=== PATIENT | female | born 1935 | race African-American/Black ===

== ENCOUNTER 2017-09-09 13:08 | Inpatient (IN) | payer MEDICARE, MEDICAID ==
[2017-09-09] MEDS ORDERED: Nitroglycerin 2% Ointment 1 INCH/1 GM Packet ONE (15:08)
[2017-09-09] MEDS ORDERED: Acetaminophen 500 MG TAB ONE (15:10)
[2017-09-09 15:35] LABS: Troponin I 0.014 ng/mL (< 0.028)
--- NOTE | 2017-09-09 16:12 | HP ---
PRIMARY CARE PHYSICIAN: Bessie Soni M.D. PRIMARY DIRECTOR CORPORATE SECURITY: Dr. Mata. REASON FOR ADMISSION: Transfer from [facility] for atrial fibrillation with RVR and ches t pain. HISTORY OF PRESENT ILLNESS: An 82-year-old -[place] female who has history of atrial fibril lation as well as coronary artery disease who went to [facility] for evaluation of chest pain. Patient reports that last night before going to bed, she was experiencing chest pain which wa s substernal in location, lasted for few minutes and subsided after without doing anything. Patient was feeling heaviness in her chest. She did not have any palpitation, dizziness, or syncope. She did not have any shortness of breath associated with chest pain. She also denied any associated luann sea, vomiting, diaphoresis; somehow patient was able to go to sleep. She lives alone at home. This morning when patient woke up, she was experiencing similar chest pain. She denied any palpitat ions, shortness of breath. She denied any dizziness. Her chest pain was more intense and more prol onged then last night. Patient's family member went to see her today and as she was continued to co mplain of chest pain and that is why family member drove her to [facility] where she was evaluated and patient was found with atrial fibrillation with rapid ventricular response. In the emergency room, patient was given 1 dose of Cardizem bolus and subsequently Cardizem drip was started. Even after that, patient's rate was not under control and that is why the patient was sen t to the emergency room at our hospital. In our emergency room, ER physician tried to wean off Cardizem drip, but her heart rate was not cont rolled and that is why she remained on a Cardizem drip. At this point, patient's chest pain has sub sided. She denies any fever, chills, or UTI symptoms. She denies any constipation, diarrhea. She denies any melena or hematochezia. She denies any headache, dizziness or fall. ALLERGIES: No known drug allergy. CURRENT HOME MEDICATIONS: Metformin 500 mg p.o. b.i.d., Toprol-XL 100 mg p.o. daily, fish oil 1000 mg p.o. daily, iron one tablet p.o. daily, , Imdur 60 mg p.o. daily, edarbyclor 40/25 one tablet [place]mer [place], aspirin 81 mg p.o. daily, Amaryl 1 mg p.o. daily, Eliquis 2.5 mg p.o. daily. EMERGENCY ROOM COURSE: At [facility], patient was given Cardizem bolus and subsequently Cardizem drip was started. PAST MEDICAL HISTORY: Coronary artery disease required CABG, diabetes type 2, hypertension, and atr ial fibrillation. PAST SURGICAL HISTORY: CABG and cardioversion was performed in 2013. REVIEW OF SYSTEMS: The following complete review of systems was negative, unless otherwise mentione d in the HPI or below: Constitutional: Weight loss or gain, ability to conduct usual activities. Skin: Rash, itching. Eyes: Double vision, pain. ENT/Mouth: Nose bleeding, neck stiffness, pain, tenderness. Cardiovascular: Palpitations, dyspnea on exertion, orthopnea. Respiratory: Shortness of breath, wheezing, cough, hemoptysis, fever or night sweats. Gastrointestinal: Poor appetite, abdominal pain, heartburn, nausea, vomiting, constipation, or diar janessa. Genitourinary: Urgency, frequency, dysuria, nocturia. Musculoskeletal: Pain, swelling. Neurologic/Psychiatric: Anxiety, depression. Allergy/Immunologic: Skin rash, bleeding tendency. Please see my HPI for pertinent positive and negative. All other review of systems reviewed and neg ative except as mentioned in the HPI. SOCIAL HISTORY: Patient lives at home by herself. Patient's family member helping her out with [employer] activities. She does not have any tobacco, alcohol or illicit drug abuse history. FAMILY HISTORY: No strong family history of premature coronary artery disease, stroke or cancer. CODE STATUS: The patient is a Jehovah Witness, but she is FULL CODE. Patient's son and daughter-in -law is power of employment law attorney. PAST PSYCHIATRIC HISTORY: Reviewed and negative. SOCIAL HISTORY: The patient lives at home by herself. Family member helps her out. No history of tobacco, alcohol or illicit drug abuse. PHYSICAL EXAMINATION: VITAL SIGNS: On arrival, blood pressure 159/101, pulse 112, respiratory rate 18, temperature 98.9, saturation 96% on room air, weight 54.4 kilograms. GENERAL: Patient is currently alert, awake, in no obvious acute distress. HEAD: Normocephalic, atraumatic. EYES: Pupils round, reactive to light. Extraocular muscles intact. ENT: Oropharynx within normal limits. Moist mucous membranes. No oral lesions. No pharyngeal carmen thema, no exudate. NECK: Supple, no JVD, no thyromegaly, no carotid bruit. LUNGS: Clear to auscultation without any rhonchi or rales. CARDIAC: S1 and S2 irregularly irregular. No murmur, no gallop, no rub. ABDOMEN: Soft, bowel sounds present, nontender, nondistended. No organomegaly, no mass, no suprapu bic tenderness. BACK: Examination unremarkable, no CVA tenderness. EXTREMITIES: Upper extremity passive movements of all joints are normal. Lower extremities: No ed maren. Good peripheral pulsation. SKIN: No skin rash. HEMATOLOGICAL SYSTEM: No lymphadenopathy. PSYCHIATRIC: Normal affect. SIGNIFICANT LABORATORY DATA AND IMAGIN. CBC: WBC 6.3, hemoglobin 11.6, platelet 223. 2. BMP: Sodium 137, potassium 4.5, chloride 102, carbon dioxide 22, BUN 14, creatinine 1.10, gluco se 111, calcium 9.2. 3. LFT: AST 23, ALT 17, alkaline phosphatase 63, albumin 3.8, CK 63, CK-MB 1.4, troponin I less th an 0.010, BNP 320.4, lipase 25. 4. EKG showing atrial fibrillation with rapid ventricular response. ASSESSMENT AND PLAN/IMPRESSION: 1. Atrial fibrillation with rapid ventricular response. Patient's rate is not under control even w ith Cardizem bolus and Cardizem drip in the emergency room. Patient continued to require Cardizem d rip. At this point, we will keep this patient on telemetry floor. We will continue Cardizem drip a nd we will consult Cardiology for further evaluation and we will continue Eliquis 2.5 mg p.o. daily and aspirin 81 mg p.o. daily. We will also continue metoprolol XL 100 mg p.o. daily. Further decis ions will defer to Cardiology. We will also obtain echocardiography and we will monitor on telemetr y floor adjust and titrate Cardizem drip if needed. 2. Chest pain, most likely related with her fibrillation with RVR, underlying cardiac etiology need s to be excluded. We will do serial cardiac enzymes x3. We will check lipid profile tomorrow. We will also check TSH. Cardiology already consulted. We will continue with Cardizem drip at this poi nt, we will provide nitroglycerin on p.r.n. basis. We will check lipid profile for risk stratificat ion. 3. Coronary artery disease with a history of coronary artery bypass graft. Currently, patient is a dmitted for chest pain, we are going to observe on telemetry floor. We will continue Toprol-XL 100 mg p.o. daily, Imdur 60 mg p.o. daily, aspirin 81 mg p.o. daily along with cardiac monitoring. 4. Diabetes type 2. We will continue metformin 500 mg twice daily and glimepiride 1 mg p.o. daily. Diabetic diet will be given and insulin as per sliding scale protocol. 5. Hypertension. We will continue edarbyclor as per home dosage daily basis along with Imdur and T oprol XL. We will more titrate blood pressure medication as needed basis. 6. Elevated BNP. We are obtaining an echocardiography to assess ejection fraction and other struct ural abnormality. 7. Anemia, normocytic, normochromic. We will continue ferrous sulfate 325 mg p.o. b.i.d. The zenobia ent is Hindu and patient will not accept blood transfusion. 8. Deep venous thrombosis prophylaxis. Patient is already on Eliquis therapy. 9. Gastrointestinal prophylaxis, Protonix 40 mg p.o. daily. CODE STATUS: The patient is FULL CODE. Patient's son and [id number] is medical power of attor stormy. Patient is Hindu. Disposition plan based on clinical course. Plan of care discussed with the patient and family carlos ferrer at bedside in the emergency room.
[2017-09-09] MEDS ORDERED: Ondansetron ODT 4 MG TAB SL PRN (16:22)
[2017-09-09] MEDS ORDERED: Ondansetron HCl/PF 4 MG/2 ML Vial IVP PRN ×2 (16:22→16:24)
[2017-09-09] MEDS ORDERED: Acetaminophen 325 MG TAB PO PRN ×2 (16:22→16:24)
[2017-09-09] MEDS ORDERED: HYDROcodone/Acetaminophen 5/325 mg Tablet PO PRN (16:24)
[2017-09-09] MEDS ORDERED: Dextrose 50% Abboject 50 ML SYRINGE SLOW IVP PRN (16:24)
[2017-09-09] MEDS ORDERED: Nitroglycerin 0.4 MG TAB (25 Tab Bottle) SL PRN (16:24)
[2017-09-09] MEDS ORDERED: Artificial Tears 18 DROP/0.9 ML EA EYE PRN (16:24)
[2017-09-09] MEDS ORDERED: Loperamide HCl 2 MG CAP PO PRN (16:24)
[2017-09-09] MEDS ORDERED: Mag-Al 1200 mg/1200 mg/30 ML UDCUP PO PRN (16:24)
[2017-09-09] MEDS ORDERED: Eucerin (Mineral Oil/Petrolatum,White) 30 gm Jar TOP PRN (16:24)
[2017-09-09] MEDS ORDERED: hydrALAZINE 20 MG/ML VIAL SLOW IVP PRN (16:24)
[2017-09-09] MEDS ORDERED: Senokot 8.6 MG TAB PO PRN (16:24)
[2017-09-09] MEDS ORDERED: Sodium Chloride 0.65% Nasal 44 ML BOT EA NARE PRN (16:24)
[2017-09-09] MEDS ORDERED: Chloraseptic Spray 180 ml Bottle PO PRN (16:24)
[2017-09-09] MEDS ORDERED: Diltiazem 125 MG in Sodium Chloride 0.9% 100 ML IVPB SCH (16:24)
[2017-09-09] MEDS ORDERED: Diabetic Tussin 200 MG/10 ML UDCUP PO PRN (16:24)
[2017-09-09] MEDS ORDERED: Milk Of Magnesia 30 ML UDCUP PO PRN (16:24)
[2017-09-09] MEDS ORDERED: Zolpidem Tartrate 5 MG TAB PO PRN (16:24)
[2017-09-09] MEDS ORDERED: HumaLOG 300 UNITS/3 ML VIAL SC PRN ×2 (16:24)
[2017-09-09] MEDS ORDERED: Ondansetron ODT 4 MG TAB PO PRN (16:24)
[2017-09-09] MEDS ORDERED: Dextrose 5% in Water 1,000 ML IV PRN (16:24)
[2017-09-09] MEDS ORDERED: Loratadine 10 MG TAB PO PRN (16:24)
[2017-09-09] MEDS: Ferrous Sulfate 325 MG TAB PO SCH (17:37)
[2017-09-09] MEDS: metFORMIN 500 MG TAB PO SCH (17:37)
[2017-09-09 18:39] LABS: Troponin I 0.011 ng/mL (< 0.028)
[2017-09-09 20:15] VITALS: BMI 19.5
[2017-09-09] MEDS: Apixaban 5 MG TAB PO SCH (20:25)
[2017-09-09] MEDS ORDERED: FLU VACC TS2017-18 (>65YR) 0.5 ML SYRINGE IM ONE (20:45)
[2017-09-09 22:14] LABS: Hematocrit 33.7 % (36.0-47.0)
[2017-09-09 23:19] LABS: Bilirubin Negative (Negative); Blood, Urine Negative (Negative); Glucose, Urine (Dipstick) Negative (Negative); Ketone, Urine Negative (Negative); Nitrite Negative (Negative); Protein, Urine (Dipstick) Negative (Neg-Trace)
[2017-09-09 23:21] LABS: Bacteria/HPF None Seen HPF (None Seen); Hyaline Casts/LPF 0-3 HYALINE CAST LPF (0-3 Hyaline); RBC/HPF 0-3 HPF (0-3); Squamous Epithelial 0-3 HPF (0-3); WBC/HPF 0-3 HPF (0-3)
--- NOTE | 2017-09-10 00:48 | CON ---
DATE OF CONSULTATION: 09/09/2017 HISTORY OF PRESENT ILLNESS: Catrachita Gutierrez is a pleasant 82-year-old black female who has history of chronic atrial fibrillation. She has undergone electrical cardioversions in the past, but has reverted back to atrial fibrillation. She was last seen in the office on 08/19/2017, digoxin 0.125 q.a.m. was discontinued. Metoprolol was increased from metoprolol ER 200 q.a.m.to Metoprolol ER 200 qam and one half of the 200 mg tablet q.p.m. She states she was doing very well; however, on 09/06/2017, ran out of metoprolol. She tried to get it refilled; however, has not had any doses since. On the evening of 09/08/2017, she had a chest pressure lasting a few minutes and then this resolved. Then, this morning when she woke up, she was again experiences similar type of chest pressure, but denied any palpitations or shortness of breath. This came more intense and she was taken by family member to [facility]. She was found to be in atrial fibrillation with fast ventricular response and was given Cardizem followed by a Cardizem drip and then transferred here. In the emergency room here, attempts were made to try to wean her off the Cardizem that her heart rate continued to be elevated. Her chest pressure has resolved. PAST MEDICAL HISTORY: Hypertension, diabetes, chronic atrial fibrillation, coronary artery disease. OPERATIONS: CABG and cardioversions in the past. MEDICATIONS: The medications when she was last seen in the office on 2016 were metoprolol 200 mg ER 1 q.a.m. and one half q.p.m., Eliquis 2.5 mg b.i.d., multivitamin daily, fish oil 1000 daily, Savaysa 30 q.d., metformin 500 mg b.i.d., aspirin 81 daily, Edarbyclor 40/25 q.a.m., pravastatin 40 at bedtime , isosorbide mononitrate 60 daily, glimepiride 1 mg daily. ALLERGIES: None. SOCIAL HISTORY: She does not smoke or drink. FAMILY HISTORY: Negative for coronary artery disease. REVIEW OF SYSTEMS: Twelve-point review systems otherwise unremarkable. PHYSICAL EXAMINATION: VITAL SIGNS: Blood pressure 154/70, pulse 86 and irregularly irregular. HEENT: PERRL. NECK: Supple. CHEST: Clear. CARDIAC: S1 and S2 are normal, without any S3, S4. There is a 2-3/6 holosystolic murmur at the apex. ABDOMEN: Normal bowel sounds, without tenderness or organomegaly. EXTREMITIES: Revealed no clubbing, cyanosis or edema. NEUROLOGIC: Grossly intact. LABORATORY DATA: EKG reveals atrial fibrillation with poor R-wave progression, nonspecific ST and T-wave changes. Hemoglobin 11.6, hematocrit 38.7, white count 6300. Sodium 137, potassium 4.5, chloride 102, carbon dioxide 22, BUN 14 , creatinine 1.10. Cardiac enzymes- negative troponin x3. BNP 324.4. IMPRESSION: 1. Chronic atrial fibrillation with rapid ventricular response at the present time due to abrupt beta filemon withdrawal since her last dose was on 2016. 2. Anticoagulation with Eliquis. 3. History of coronary artery bypass grafting. 4. Chest pressure, probably related to atrial fibrillation with fast ventricular response. 5. Moderate mitral regurgitation. 6. Diabetes. 7. Hyperlipidemia. PLAN: The patient restarted on her beta filemon -100 mg of metoprolol tonight and resumed in the 200 mg in the morning. Hopefully, tomorrow her Cardizem can be tapered and discontinued. MTDD
[2017-09-10 05:13] LABS: #Basophils 0.1 thou/uL (0.0-0.2); #Lymphocytes 1.6 thou/uL (1.20-3.40); #Monocytes 0.5 thou/uL (0.11-0.59); #Neutrophils 2.9 thou/uL (1.40-6.50); %Basophils 1.2 % (0.0-1.0); %Eosinophils 0.4 % (0.0-10.0); %Monocytes 9.4 % (0.0-10.0); Hematocrit 35.6 % (36.0-47.0); Mean Platelet Volume 8.5 fL (7.4-10.4); Red Blood Cell (RBC) Count 3.73 mill/uL (4.20-5.40); White Blood Cell (WBC) Count 5.1 thou/uL (4.8-10.8)
[2017-09-10 05:17] LABS: Prothrombin Time 29.5 SEC (12.0-14.7)
[2017-09-10 05:38] LABS: ALT (SGPT) 17 U/L (8-55); AST (SGOT) 20 U/L (5-34); Alkaline Phosphatase 56 U/L (40-150); Anion Gap 12 mmol/L (10-20); BUN (Urea Nitrogen) 15 mg/dL (9.8-20.1); Bilirubin, Total 0.9 mg/dL (0.2-1.2); Calc. Creatinine Clearance 32 mL/min (70-130); Calcium 9.1 mg/dL (7.8-10.44); Carbon Dioxide 26 mmol/L (23-31); Chloride 100 mmol/L (98-107); Cholesterol 111 mg/dl (< 200 Desired); Estimated GFR-MDRD 63; Globulin 3.7 g/dL (2.4-3.5); LDL Cholesterol, Calculated 55 mg/dL; Protein, Total 7.2 g/dL (6.0-8.3)
[2017-09-10] MEDS: Apixaban 5 MG TAB PO SCH ×2 (09:22→20:47)
[2017-09-10] MEDS: Fish Oil 1,000 MG CAP PO SCH (09:22)
[2017-09-10] MEDS: metFORMIN 500 MG TAB PO SCH ×2 (09:23→17:17)
[2017-09-10] MEDS: Ferrous Sulfate 325 MG TAB PO SCH ×2 (09:23→17:17)
[2017-09-10] MEDS: Glimepiride 1 MG TAB PO SCH (10:34)
--- NOTE | 2017-09-10 11:06 | PDOC.PN ---
- Subjective Encounter Start Date: 09/10/17 Encounter Start Time: 06:45 -: old records requested/rev pt is on cardizem drip, rate controlled, does not have chest pain, no fever - Objective Resuscitation Status: Resuscitation Status FULL:Full Resuscitation MAR Reviewed: Yes Vital Signs & Weight: Vital Signs (12 hours) Temp Pulse Resp BP Pulse Ox 09/10/17 07:21 98.0 F 77 18 96 09/10/17 07:00 98.0 F 77 18 130/73 96 09/10/17 04:00 98.1 F 68 20 118/67 97 09/09/17 23:33 98.3 F 70 18 119/64 98 Weight Weight 106 lb I&O: 09/09/17 09/10/17 09/11/17 06:59 06:59 06:59 Intake Total 633 Output Total 400 Balance 233 Result Diagrams: 09/10/17 04:14 09/10/17 04:14 Additional Labs: Accuchecks 09/10/17 09/09/17 09/09/17 05:58 20:48 16:13 POC Glucose 116 H 192 H 122 H EKG Reviewed by me: Yes (afib ) Phys Exam - Physical Examination Constitutional: NAD HEENT: PERRLA, moist MMs, sclera anicteric Neck: no JVD, supple Respiratory: no wheezing, no rales, no rhonchi Cardiovascular: no significant murmur, irregular Gastrointestinal: soft, non-tender, no distention, positive bowel sounds Musculoskeletal: no edema, pulses present Neurological: non-focal, normal sensation, moves all 4 limbs Lymphatic: no nodes Psychiatric: normal affect, A&O x 3 Skin: no rash, normal turgor Dx/Plan (1) Atrial fibrillation with RVR Code(s): I48.91 - UNSPECIFIED ATRIAL FIBRILLATION Status: Acute Comment: controlled (2) Chest pain Code(s): R07.9 - CHEST PAIN, UNSPECIFIED Status: Acute (3) CAD (coronary artery disease) Code(s): I25.10 - ATHSCL HEART DISEASE OF [place] CORONARY ARTERY W/O ANG PCTRS Status: Chronic (4) Chronic anticoagulation Code(s): Z79.01 - PHP [employer] DEVELOPER (CURRENT) USE OF ANTICOAGULANTS Status: Chronic (5) Diabetes type 2, controlled Code(s): E11.9 - TYPE 2 DIABETES MELLITUS WITHOUT COMPLICATIONS Status: Chronic (6) Dyslipidemia Code(s): E78.5 - HYPERLIPIDEMIA, UNSPECIFIED Status: Chronic (7) Hypertension Code(s): I10 - ESSENTIAL (PRIMARY) HYPERTENSION Status: Chronic (8) Anemia, normocytic normochromic Code(s): D64.9 - ANEMIA, UNSPECIFIED Status: Chronic - Plan cont current plan of care * cardiology recommendation noted * echo will be done * will taper off cardizem drip today * will monitor today * further recommendation will defer to cardiology * medication reviewed as below * symptomatic treatment. Review of Systems - Review of Systems Constitutional: negative: Fever, Chills, Sweats, Weakness, Malaise, Other ENT: negative: Ear Pain, Ear Discharge, Nose Pain, Nose Discharge, Nose Congestion, Mouth Pain, Mouth Swelling, Throat Pain, Throat Swelling, Other Respiratory: negative: Cough, Dry, Shortness of Breath, Hemoptysis, SOB with Excertion, Pleuritic Pain, Sputum, Wheezing Cardiovascular: negative: Chest Pain, Palpitations, Orthopnea, Paroxysmal Noc. Dyspnea, Edema, Light Headedness, Other Gastrointestinal: negative: Nausea, Vomiting, Abdominal Pain, Diarrhea, Constipation, Melena, Hematochezia, Other Genitourinary: negative: Dysuria, Frequency, Incontinence, Hematuria, Retention , Other Musculoskeletal: negative: Neck Pain, Shoulder Pain, Arm Pain, Back Pain, Hand Pain, Leg Pain, Foot Pain, Other Skin: negative: Rash, Lesions, Cristopher, Bruising, Other - Medications/Allergies Allergies/Adverse Reactions: Allergies Allergy/AdvReac Type Severity Reaction Status Date / Time No Known Allergies Allergy Unverified 09/06/15 10:27 Medications: Current Medications Acetaminophen (Tylenol) 650 mg PO Q4H PRN PRN Reason: Headache/Fever or Pain Hydrocodone Bitart/Acetaminophen ([place] 5/325) 1 tab PO Q4H PRN PRN Reason: Moderate Pain (4-6) Al Hydroxide/Mg Hydroxide (Maalox) 30 ml PO Q6H PRN PRN Reason: Heartburn or Indigestion Last Admin: 09/09/17 18:18 Dose: 30 ml Apixaban (Eliquis) 2.5 mg PO BID JAEL Last Admin: 09/10/17 09:22 Dose: 2.5 mg Artificial Tears (Tears Naturale) 0 drop EA EYE PRN PRN PRN Reason: Dry Eyes Aspirin (Aspirin Chewable) 81 mg PO DAILY [facility] Last Admin: 09/10/17 09:23 Dose: 81 mg Dextrose/Water (Dextrose 50%) 25 gm SLOW IVP PRN PRN PRN Reason: Hypoglycemia Ferrous Sulfate (Feosol) 325 mg PO BID-[facility] Last Admin: 09/10/17 09:23 Dose: 325 mg Fish Oil (Fish Oil) 1,000 mg PO DAILY [facility] Last Admin: 09/10/17 09:22 Dose: 1,000 mg Glimepiride (Amaryl) 1 mg PO QAM-[facility] Last Admin: 09/10/17 10:34 Dose: 1 mg Glucagon (Glucagon) 1 mg IM PRN PRN PRN Reason: Hypoglycemia Guaifenesin (Robitussin Sf) 200 mg PO Q4H PRN PRN Reason: Cough Hydralazine HCl (Apresoline) 10 mg SLOW IVP Q4H PRN PRN Reason: Systolic BP > 180 Dextrose/Water (D5w) 1,000 mls @ 0 mls/hr IV .Q0M PRN; As Directed PRN Reason: Hypoglycemia Insulin Human Lispro (Humalog) 0 units SC .MODERATE SLIDING SC PRN PRN Reason: Moderate Correctional Scale Insulin Human Lispro (Humalog) 0 units SC .BEDTIME SLIDING SC PRN PRN Reason: Bedtime Correctional Scale Isosorbide Mononitrate (Imdur) 60 mg PO DAILY [facility] Last Admin: 09/10/17 09:23 Dose: 60 mg Loperamide HCl (Imodium) 2 mg PO PRN PRN PRN Reason: Diarrhea/Loose Stools Loratadine (Claritin) 10 mg PO DAILYPRN PRN PRN Reason: Sinus Symptoms Magnesium Hydroxide (Milk Of Magnesium) 30 ml PO DAILYPRN PRN PRN Reason: Constipation Metformin HCl (Glucophage) 500 mg PO BID-[facility] Last Admin: 09/10/17 09:23 Dose: 500 mg Metoprolol Succinate (Toprol Xl) 200 mg PO BID [facility] Last Admin: 09/10/17 09:22 Dose: 200 mg Mineral Oil/White Petrolatum (Eucerin Cream) 0 gm TOP BIDPRN PRN PRN Reason: Dry Skin Nitroglycerin (Nitrostat) 0.4 mg SL Q5MIN PRN PRN Reason: Chest Pain Ondansetron HCl (Zofran Odt) 4 mg PO Q6H PRN PRN Reason: Nausea/Vomiting Last Admin: 09/10/17 03:52 Dose: 4 mg Ondansetron HCl (Zofran) 4 mg IVP Q6H PRN PRN Reason: Nausea/Vomiting Pantoprazole Sodium (Protonix) 40 mg PO 2100 JAEL Phenol (Chloraseptic [place] 180 Ml Bot) 0 ml PO PRN PRN PRN Reason: Sore Throat Senna (Senokot) 2 tab PO HSPRN PRN PRN Reason: Constipation Sodium Chloride ([place] Nasal [place] 0.65%) 0 ml EA NARE QIDPRN PRN PRN Reason: Nasal Congestion Zolpidem Tartrate (Ambien) 5 mg PO HSPRN PRN PRN Reason: Insomnia
[2017-09-10] MEDS ORDERED: Diltiazem 125 MG in Sodium Chloride 0.9% 100 ML IVPB SCH (22:15)
--- NOTE | 2017-09-11 08:15 | PDOC.PN ---
- Subjective Encounter Start Date: 09/11/17 Encounter Start Time: 08:13 pt's heart rate is variable, not well controlled - Objective Resuscitation Status: Resuscitation Status FULL:Full Resuscitation MAR Reviewed: Yes Vital Signs & Weight: Vital Signs (12 hours) Temp Pulse Resp BP Pulse Ox 09/11/17 08:00 98.1 F 77 16 09/11/17 04:00 98.1 F 77 16 120/70 96 09/11/17 00:00 98.6 F 09/10/17 20:40 99.8 F H 120 H 18 94 L Weight Weight 107 lb 8 oz I&O: 09/10/17 09/11/17 09/12/17 06:59 06:59 06:59 Intake Total 633 987 Output Total 400 850 Balance 233 137 Result Diagrams: 09/10/17 04:14 09/10/17 04:14 Additional Labs: Accuchecks 09/11/17 09/10/17 09/10/17 06:00 20:41 16:32 POC Glucose 79 131 H 76 09/10/17 11:14 POC Glucose 175 H EKG Reviewed by me: Yes (afib with variable rate) Phys Exam - Physical Examination Constitutional: NAD HEENT: PERRLA, moist MMs, sclera anicteric Neck: no JVD, supple Respiratory: no wheezing, no rales, no rhonchi Cardiovascular: no significant murmur, irregular Gastrointestinal: soft, non-tender, no distention, positive bowel sounds Musculoskeletal: no edema, pulses present Neurological: non-focal, normal sensation, moves all 4 limbs Psychiatric: normal affect, A&O x 3 Skin: no rash, normal turgor Dx/Plan (1) Atrial fibrillation with RVR Code(s): I48.91 - UNSPECIFIED ATRIAL FIBRILLATION Status: Acute Comment: controlled (2) Chest pain Code(s): R07.9 - CHEST PAIN, UNSPECIFIED Status: Acute (3) CAD (coronary artery disease) Code(s): I25.10 - ATHSCL HEART DISEASE OF [place] CORONARY ARTERY W/O ANG PCTRS Status: Chronic (4) Chronic anticoagulation Code(s): Z79.01 - CARE HOME (CURRENT) USE OF ANTICOAGULANTS Status: Chronic (5) Diabetes type 2, controlled Code(s): E11.9 - TYPE 2 DIABETES MELLITUS WITHOUT COMPLICATIONS Status: Chronic (6) Dyslipidemia Code(s): E78.5 - HYPERLIPIDEMIA, UNSPECIFIED Status: Chronic (7) Hypertension Code(s): I10 - ESSENTIAL (PRIMARY) HYPERTENSION Status: Chronic - Plan cont current plan of care * continue cardizem drip * continue toprol XL * echo result pending * medication reviewed as below * symptomatic treatment * cardiology following. * continue elliquis Review of Systems - Review of Systems ENT: negative: Ear Pain, Ear Discharge, Nose Pain, Nose Discharge, Nose Congestion, Mouth Pain, Mouth Swelling, Throat Pain, Throat Swelling, Other Respiratory: negative: Cough, Dry, Shortness of Breath, Hemoptysis, SOB with Excertion, Pleuritic Pain, Sputum, Wheezing Cardiovascular: negative: Chest Pain, Palpitations, Orthopnea, Paroxysmal Noc. Dyspnea, Edema, Light Headedness, Other Gastrointestinal: negative: Nausea, Vomiting, Abdominal Pain, Diarrhea, Constipation, Melena, Hematochezia, Other Genitourinary: negative: Dysuria, Frequency, Incontinence, Hematuria, Retention , Other Musculoskeletal: negative: Neck Pain, Shoulder Pain, Arm Pain, Back Pain, Hand Pain, Leg Pain, Foot Pain, Other Skin: negative: Rash, Lesions, Cristopher, Bruising, Other - Medications/Allergies Allergies/Adverse Reactions: Allergies Allergy/AdvReac Type Severity Reaction Status Date / Time No Known Allergies Allergy Unverified 09/06/15 10:27 Medications: Current Medications Acetaminophen (Tylenol) 650 mg PO Q4H PRN PRN Reason: Headache/Fever or Pain Hydrocodone Bitart/Acetaminophen ([place] 5/325) 1 tab PO Q4H PRN PRN Reason: Moderate Pain (4-6) Al Hydroxide/Mg Hydroxide (Maalox) 30 ml PO Q6H PRN PRN Reason: Heartburn or Indigestion Last Admin: 09/09/17 18:18 Dose: 30 ml Apixaban (Eliquis) 2.5 mg PO BID [facility] Last Admin: 09/10/17 20:47 Dose: 2.5 mg Artificial Tears (Tears Naturale) 0 drop EA EYE PRN PRN PRN Reason: Dry Eyes Aspirin (Aspirin Chewable) 81 mg PO DAILY [facility] Last Admin: 09/10/17 09:23 Dose: 81 mg Dextrose/Water (Dextrose 50%) 25 gm SLOW IVP PRN PRN PRN Reason: Hypoglycemia Ferrous Sulfate (Feosol) 325 mg PO BID-[facility] Last Admin: 09/10/17 17:17 Dose: 325 mg Fish Oil (Fish Oil) 1,000 mg PO DAILY [facility] Last Admin: 09/10/17 09:22 Dose: 1,000 mg Glimepiride (Amaryl) 1 mg PO QAM-[facility] Last Admin: 09/10/17 10:34 Dose: 1 mg Glucagon (Glucagon) 1 mg IM PRN PRN PRN Reason: Hypoglycemia Guaifenesin (Robitussin Sf) 200 mg PO Q4H PRN PRN Reason: Cough Hydralazine HCl (Apresoline) 10 mg SLOW IVP Q4H PRN PRN Reason: Systolic BP > 180 Dextrose/Water (D5w) 1,000 mls @ 0 mls/hr IV .Q0M PRN; As Directed PRN Reason: Hypoglycemia Diltiazem HCl 125 mg/ Sodium (Chloride) 125 mls @ 5 mls/hr IVPB INF [facility] PRN Reason: 5 MG/HR Last Admin: 09/10/17 22:38 Dose: 125 mls Insulin Human Lispro (Humalog) 0 units SC .MODERATE SLIDING SC PRN PRN Reason: Moderate Correctional Scale Last Admin: 09/10/17 12:31 Dose: 2 unit Insulin Human Lispro (Humalog) 0 units SC .BEDTIME SLIDING SC PRN PRN Reason: Bedtime Correctional Scale Isosorbide Mononitrate (Imdur) 60 mg PO DAILY [facility] Last Admin: 09/10/17 09:23 Dose: 60 mg Loperamide HCl (Imodium) 2 mg PO PRN PRN PRN Reason: Diarrhea/Loose Stools Loratadine (Claritin) 10 mg PO DAILYPRN PRN PRN Reason: Sinus Symptoms Magnesium Hydroxide (Milk Of Magnesium) 30 ml PO DAILYPRN PRN PRN Reason: Constipation Metformin HCl (Glucophage) 500 mg PO BID-[facility] Last Admin: 09/10/17 17:17 Dose: 500 mg Metoprolol Succinate (Toprol Xl) 200 mg PO BID [facility] Last Admin: 09/10/17 20:47 Dose: 200 mg Mineral Oil/White Petrolatum (Eucerin Cream) 0 gm TOP BIDPRN PRN PRN Reason: Dry Skin Nitroglycerin (Nitrostat) 0.4 mg SL Q5MIN PRN PRN Reason: Chest Pain Ondansetron HCl (Zofran Odt) 4 mg PO Q6H PRN PRN Reason: Nausea/Vomiting Last Admin: 09/10/17 03:52 Dose: 4 mg Ondansetron HCl (Zofran) 4 mg IVP Q6H PRN PRN Reason: Nausea/Vomiting Pantoprazole Sodium (Protonix) 40 mg PO 2100 JAEL Last Admin: 09/10/17 20:47 Dose: 40 mg Phenol (Chloraseptic [place] 180 Ml Bot) 0 ml PO PRN PRN PRN Reason: Sore Throat Senna (Senokot) 2 tab PO HSPRN PRN PRN Reason: Constipation Sodium Chloride ([place] Nasal [place] 0.65%) 0 ml EA NARE QIDPRN PRN PRN Reason: Nasal Congestion Zolpidem Tartrate (Ambien) 5 mg PO HSPRN PRN PRN Reason: Insomnia
[2017-09-11] MEDS: Fish Oil 1,000 MG CAP PO SCH (09:02)
[2017-09-11] MEDS: Ferrous Sulfate 325 MG TAB PO SCH ×2 (09:02→16:47)
[2017-09-11] MEDS: Apixaban 5 MG TAB PO SCH ×2 (09:03→21:09)
[2017-09-11] MEDS: metFORMIN 500 MG TAB PO SCH ×2 (09:03→16:58)
[2017-09-11] MEDS: Digoxin 0.25 MG TAB PO SCH ×2 (14:49→16:47)
[2017-09-11] MEDS: Glimepiride 1 MG TAB PO SCH (16:31)
[2017-09-11 22:43] LABS: Hematocrit 32.5 % (36.0-47.0)
[2017-09-12 07:50] LABS: Anion Gap 11 mmol/L (10-20); BUN (Urea Nitrogen) 17 mg/dL (9.8-20.1); BUN/Creatinine Ratio 17.35; Calc. Creatinine Clearance 33 mL/min (70-130); Calcium 8.7 mg/dL (7.8-10.44); Carbon Dioxide 26 mmol/L (23-31); Chloride 102 mmol/L (98-107); Estimated GFR-MDRD 66; Magnesium 1.6 mg/dL (1.6-2.6); Phosphorus 2.6 mg/dL (2.3-4.7)
[2017-09-12] MEDS: Ferrous Sulfate 325 MG TAB PO SCH ×2 (08:32→16:52)
[2017-09-12] MEDS: metFORMIN 500 MG TAB PO SCH ×2 (08:32→16:48)
[2017-09-12] MEDS: Apixaban 5 MG TAB PO SCH ×2 (08:32→20:12)
[2017-09-12] MEDS: Glimepiride 1 MG TAB PO SCH (08:32)
[2017-09-12] MEDS: Digoxin 0.125 MG TAB PO SCH (08:33)
[2017-09-12] MEDS: Fish Oil 1,000 MG CAP PO SCH (08:33)
--- NOTE | 2017-09-12 14:44 | PDOC.PN ---
- Subjective Encounter Start Date: 09/12/17 Encounter Start Time: 14:41 Patient seen and examined. No new complaints. No overnight events. No CP. - Objective Resuscitation Status: Resuscitation Status FULL:Full Resuscitation MAR Reviewed: Yes Vital Signs & Weight: Vital Signs (12 hours) Temp Pulse Resp BP Pulse Ox 09/12/17 11:04 97.7 F 83 16 149/70 H 100 09/12/17 08:33 86 09/12/17 08:29 97.7 F 83 16 138/77 100 09/12/17 03:40 97.8 F 76 18 122/72 98 Weight Weight 106 lb 7 oz I&O: 09/11/17 09/12/17 09/13/17 06:59 06:59 06:59 Intake Total 987 1320 Output Total 850 1555 Balance 137 -235 Result Diagrams: 09/11/17 22:34 09/12/17 07:21 Additional Labs: Accuchecks 09/12/17 09/12/17 09/11/17 11:23 05:42 21:11 POC Glucose 114 H 87 207 H 09/11/17 09/11/17 09/11/17 18:28 18:06 17:11 POC Glucose 62 L 57 L* 99 09/11/17 16:12 POC Glucose 64 L EKG Reviewed by me: Yes (Tele Afib) Phys Exam - Physical Examination Constitutional: NAD Respiratory: no wheezing, no rhonchi Cardiovascular: no significant murmur, irregular Gastrointestinal: soft, non-tender, positive bowel sounds Musculoskeletal: no edema Neurological: non-focal, moves all 4 limbs Psychiatric: A&O x 3 Dx/Plan (1) Atrial fibrillation with RVR Code(s): I48.91 - UNSPECIFIED ATRIAL FIBRILLATION Status: Acute Comment: controlled (2) NSVT (nonsustained ventricular tachycardia) Code(s): I47.2 - VENTRICULAR TACHYCARDIA Status: Acute (3) Anemia, normocytic normochromic Code(s): D64.9 - ANEMIA, UNSPECIFIED Status: Chronic (4) CAD (coronary artery disease) Code(s): I25.10 - ATHSCL HEART DISEASE OF [place] CORONARY ARTERY W/O ANG PCTRS Status: Chronic (5) Chronic anticoagulation Code(s): Z79.01 - MCFP (CURRENT) USE OF ANTICOAGULANTS Status: Chronic (6) Diabetes type 2, controlled Code(s): E11.9 - TYPE 2 DIABETES MELLITUS WITHOUT COMPLICATIONS Status: Chronic (7) Dyslipidemia Code(s): E78.5 - HYPERLIPIDEMIA, UNSPECIFIED Status: Chronic (8) Chest pain Code(s): R07.9 - CHEST PAIN, UNSPECIFIED Status: Acute - Plan cont current plan of care * Cont current meds as below * Cardiology following * DC planning * Counselled on med compliance Review of Systems - Review of Systems Respiratory: negative: Cough, Dry, Shortness of Breath, Hemoptysis, SOB with Excertion, Pleuritic Pain, Sputum, Wheezing Cardiovascular: negative: Chest Pain, Palpitations, Orthopnea, Paroxysmal Noc. Dyspnea, Edema, Light Headedness, Other Gastrointestinal: negative: Nausea, Vomiting, Abdominal Pain, Diarrhea, Constipation, Melena, Hematochezia, Other - Medications/Allergies Allergies/Adverse Reactions: Allergies Allergy/AdvReac Type Severity Reaction Status Date / Time No Known Allergies Allergy Unverified 09/06/15 10:27 Medications: Current Medications Acetaminophen (Tylenol) 650 mg PO Q4H PRN PRN Reason: Headache/Fever or Pain Hydrocodone Bitart/Acetaminophen ([place] 5/325) 1 tab PO Q4H PRN PRN Reason: Moderate Pain (4-6) Al Hydroxide/Mg Hydroxide (Maalox) 30 ml PO Q6H PRN PRN Reason: Heartburn or Indigestion Last Admin: 09/09/17 18:18 Dose: 30 ml Apixaban (Eliquis) 2.5 mg PO BID [facility] Last Admin: 09/12/17 08:32 Dose: 2.5 mg Artificial Tears (Tears Naturale) 0 drop EA EYE PRN PRN PRN Reason: Dry Eyes Aspirin (Aspirin Chewable) 81 mg PO DAILY [facility] Last Admin: 09/12/17 08:33 Dose: 81 mg Dextrose/Water (Dextrose 50%) 25 gm SLOW IVP PRN PRN PRN Reason: Hypoglycemia Digoxin (Lanoxin) 0.125 mg PO DAILY [facility] Last Admin: 09/12/17 08:33 Dose: 0.125 mg Ferrous Sulfate (Feosol) 325 mg PO BID-[facility] Last Admin: 09/12/17 08:32 Dose: 325 mg Fish Oil (Fish Oil) 1,000 mg PO DAILY [facility] Last Admin: 09/12/17 08:33 Dose: 1,000 mg Glimepiride (Amaryl) 1 mg PO QAM-[facility] Last Admin: 09/12/17 08:32 Dose: 1 mg Glucagon (Glucagon) 1 mg IM PRN PRN PRN Reason: Hypoglycemia Guaifenesin (Robitussin Sf) 200 mg PO Q4H PRN PRN Reason: Cough Hydralazine HCl (Apresoline) 10 mg SLOW IVP Q4H PRN PRN Reason: Systolic BP > 180 Dextrose/Water (D5w) 1,000 mls @ 0 mls/hr IV .Q0M PRN; As Directed PRN Reason: Hypoglycemia Insulin Human Lispro (Humalog) 0 units SC .MODERATE SLIDING SC PRN PRN Reason: Moderate Correctional Scale Last Admin: 09/10/17 12:31 Dose: 2 unit Insulin Human Lispro (Humalog) 0 units SC .BEDTIME SLIDING SC PRN PRN Reason: Bedtime Correctional Scale Isosorbide Mononitrate (Imdur) 60 mg PO DAILY [facility] Last Admin: 09/12/17 08:33 Dose: 60 mg Loperamide HCl (Imodium) 2 mg PO PRN PRN PRN Reason: Diarrhea/Loose Stools Loratadine (Claritin) 10 mg PO DAILYPRN PRN PRN Reason: Sinus Symptoms Magnesium Hydroxide (Milk Of Magnesium) 30 ml PO DAILYPRN PRN PRN Reason: Constipation Metformin HCl (Glucophage) 500 mg PO BID-[facility] Last Admin: 09/12/17 08:32 Dose: 500 mg Metoprolol Succinate (Toprol Xl) 200 mg PO BID [facility] Last Admin: 09/12/17 08:33 Dose: 200 mg Mineral Oil/White Petrolatum (Eucerin Cream) 0 gm TOP BIDPRN PRN PRN Reason: Dry Skin Nitroglycerin (Nitrostat) 0.4 mg SL Q5MIN PRN PRN Reason: Chest Pain Ondansetron HCl (Zofran Odt) 4 mg PO Q6H PRN PRN Reason: Nausea/Vomiting Last Admin: 09/10/17 03:52 Dose: 4 mg Ondansetron HCl (Zofran) 4 mg IVP Q6H PRN PRN Reason: Nausea/Vomiting Pantoprazole Sodium (Protonix) 40 mg PO 2100 [facility] Last Admin: 09/11/17 21:10 Dose: 40 mg Phenol (Chloraseptic [place] 180 Ml Bot) 0 ml PO PRN PRN PRN Reason: Sore Throat Senna (Senokot) 2 tab PO HSPRN PRN PRN Reason: Constipation Sodium Chloride ([place] Nasal [place] 0.65%) 0 ml EA NARE QIDPRN PRN PRN Reason: Nasal Congestion Zolpidem Tartrate (Ambien) 5 mg PO HSPRN PRN PRN Reason: Insomnia
--- NOTE | 2017-09-12 15:38 | PQF ---
CLINICAL DOCUMENTATION IMPROVEMENT CLARIFICATION FORM: ICD-10 Updated PLEASE DO AN ADDENDUM TO THE PROGRESS NOTE WITH ANY DOCUMENTATION UPDATES OR ADDITIONS AND CARRY THROUGH TO DC SUMMARY. THANK YOU. DATE: 09/11/17 ATTN: DR. LOPES Please exercise your independent, professional judgment in responding to the clarification form. Clinical indicators are provided on the bottom of this form for your review Please check appropriate box(s): ____x___ I (concur) with the Wound Care findings as stated below. [ ] Pressure Ulcer: (Stage I: Erythema; Stage II: Partial thickness; Stage III : Full thickness; Stage IV: Necrosis to muscle/bone) [ ] Location: POA: [ ] Yes [ ] No[ ] Unable to determine Stage (I to IV): (Left Right Bilateral N/A ) [ ] Location: POA: [ ] Yes [ ] No[ ] Unable to determine Stage (I to IV): (Left Right Bilateral N/A ) [ ] Location: POA: [ ] Yes [ ] No[ ] Unable to determine Stage (I to IV): (Left Right Bilateral N/A ) [ ] Gangrene present [ ] Yes [ ] ischemic gangrene [ ] gas gangrene [ ] No [ ] No pressure ulcer diagnosis [ ] Deep tissue injury [ ] Other diagnosis [ ] Unable to determine In addition, please specify: Present on Admission (POA): [x ] Yes [ ] No [ ] Unable to determine For continuity of documentation, please document condition throughout progress notes and discharge summary. Thank You. 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 All Rights Reserved ILEANA [email or web address] Office: [phone] [facility]ENTER[facility]
[2017-09-13] MEDS: Apixaban 5 MG TAB PO SCH (08:36)
[2017-09-13] MEDS: Digoxin 0.125 MG TAB PO SCH (08:36)
[2017-09-13] MEDS: Ferrous Sulfate 325 MG TAB PO SCH (08:36)
[2017-09-13] MEDS: Fish Oil 1,000 MG CAP PO SCH (08:37)
[2017-09-13 12:33] VITALS: BP 149/75; TEMP 98
--- NOTE | 2017-09-13 15:09 | DIS ---
DATE OF DISCHARGE: 09/13/2017 DISCHARGE DISPOSITION: Home healthcare through [facility] will be arranged. ALLERGIES: No known drug allergies. The patient was seen and examined on the day of discharge. Denies any new complaints. No chest pain , shortness of breath, palpitations. The patient is currently in atrial fibrillation, heart rate is controlled. DISCHARGE MEDICATIONS: 1. Digoxin 0.125 mg daily (new medication). 2. Azilsartan/chlorthalidone 40/12.5 (dose reduced). 3. Imdur ER 30 mg daily (dose reduced). 4. Toprol-XL 200 mg b.i.d. (dose increased). Other home medications were resumed including Eliquis 2.5 mg b.i.d., aspirin 81 mg daily, fish oil 10 00 mg daily, iron 80 mg daily, metformin 500 mg b.i.d. MEDICATIONS DISCONTINUED THIS ADMISSION: Glimepiride due to persistent hypoglycemia with blood sugar s in the 40s. FOLLOWUP: Follow up with primary care physician, Dr. Bessie Soni in 1 week. Follow up with Dr. Dalia Mata in 1 week. BRIEF HOSPITAL COURSE: Patient is an 82-year-old female with chronic atrial fibrillation, coronary a rtery disease, presented to the hospital with palpitations and chest discomfort. Please refer to the history and physical dated 09/09/2017 for further details. The patient was admitted to the hospital with a diagnosis of atrial fibrillation with rapid ventricul ar response requiring Cardizem drip. Patient apparently had missed some of her medications. This wa s probably the cause of atrial fibrillation with rapid ventricular response. Echocardiogram showed e jection fraction 40-45% with moderate to severe tricuspid regurgitation, severe mitral regurgitation, moderately enlarged right atrium size. The patient was seen by Cardiology, Dr. To Mata. Her medications have been optimized. Heart rate is controlled at this time. Due to persistent hypoglyce jordan, glimepiride has been discontinued. Due to increase in Toprol-XL, other medication dose includin g isosorbide mononitrate and Edarbyclor dose were reduced. The son at the bedside was extensively co unseled. He was also advised to stop Edarbyclor if blood pressure is below 110 systolic. Fall preca ution was extensively emphasized. Home health care has been arranged for close monitoring. She appe ars stable for discharge. FINAL DIAGNOSES: 1. Atrial fibrillation with rapid ventricular response. Medications have been optimized. 2. Hypertension. 3. Nonsustained ventricular tachycardia this admission. For this reason, beta filemon dose was incr eased. 4. Chronic anemia. 5. Chronic anticoagulation. 6. Coronary artery disease. 7. Diabetes mellitus type 2. 8. Dyslipidemia. 9. Chest pain on admission secondary to #1. 10. Islam. 11. Chronic kidney disease stage 2. 12. Chronic anemia. 13. Advanced age. 14. Hypoglycemia. 15. Mild hyponatremia with sodium of 133. At discharge, it was 135. SIGNIFICANT LABORATORIES: 1. TSH 1.8. 2. Fasting lipid showed HDL 45, LDL 55, cholesterol 111. 3. Echocardiogram as discussed above. Total time coordinating the discharge of this patient was 37 minutes.
--- NOTE | 2017-10-18 16:03 | EKG ---
Test Reason : Blood Pressure : / mmHG Vent. Rate : 092 BPM Atrial Rate : 080 BPM P-R Int : 000 ms QRS Dur : 064 ms QT Int : 380 ms P-R-T Axes : 000 068 -86 degrees QTc Int : 469 ms Atrial fibrillation Anterior infarct , age undetermined Abnormal ECG Confirmed by GREGOR DO MD ([id number]), editor in chief newspaper HENNA BERMEO ([id number]) on 10/18/2017 4:02:56 PM Referred By: Confirmed By:GREGOR DO MD
--- NOTE | 2017-10-18 16:05 | EKG ---
Test Reason : CHESTPAIN Blood Pressure : / mmHG Vent. Rate : 096 BPM Atrial Rate : 133 BPM P-R Int : 000 ms QRS Dur : 066 ms QT Int : 378 ms P-R-T Axes : 000 072 -83 degrees QTc Int : 477 ms Atrial fibrillation Anterior infarct , age undetermined Abnormal ECG Similar to #1 Confirmed by ERNESTINA SANDOVAL, GREGOR ([id number]), commercial production editor HENNA BERMEO ([id number]) on 10/18/2017 4:04:43 PM Referred By: Confirmed By:GREGOR DO MD
== END 2017-09-13 13:14 | disposition home health service (06) | DRG 309 ==
LOC: ERS 13:08 → 2NO 14:44
PROVIDERS: ADMIT Internal Medicine; ATTEND Internal Medicine
DX: I48.2 Chronic atrial fibrillation (principal); E87.1 Hypo-osmolality and hyponatremia; I47.2 Ventricular tachycardia; L89.152 Pressure ulcer of sacral region, stage 2; E11.649 Type 2 diabetes mellitus with hypoglycemia without coma; E11.22 Type 2 diabetes mellitus with diabetic chronic kidney disease; D64.9 Anemia, unspecified; I34.0 Nonrheumatic mitral (valve) insufficiency; T44.7X6A Underdosing of beta-adrenoreceptor antagonists, initial encounter; Z91.138 Patient's unintentional underdosing of medication regimen for other reason; Z23 Encounter for immunization; I07.1 Rheumatic tricuspid insufficiency; I12.9 Hypertensive chronic kidney disease with stage 1 through stage 4 chronic kidney disease, or unspecified chronic kidney disease; N18.2 Chronic kidney disease, stage 2 (mild); I25.10 Atherosclerotic heart disease of native coronary artery without angina pectoris; Z79.01 Long term (current) use of anticoagulants; E78.5 Hyperlipidemia, unspecified; Z95.1 Presence of aortocoronary bypass graft
CPT/HCPCS: 36415; 36416; 80053; 80061; 80069; 81001; 82565; 83735; 84443; 85014; 85018; 85025; 85049; 85610; 90471; 90732; 93005; 93306; 96365; 96366; G0009; J7050; Q0162

== ENCOUNTER 2017-12-19 21:29 | Inpatient (IN) | payer MEDICARE, MEDICAID ==
[2017-12-19 23:49] LABS: CKMB 1.2 ng/mL (0-6.6); Troponin I 0.015 ng/mL (< 0.028)
[2017-12-20] MEDS ORDERED: Acetaminophen 325 MG TAB PO PRN ×2 (00:51→04:39)
[2017-12-20] MEDS ORDERED: Ondansetron ODT 4 MG TAB SL PRN (00:51)
[2017-12-20] MEDS ORDERED: Ondansetron HCl/PF 4 MG/2 ML Vial IVP PRN ×3 (00:51→04:39)
[2017-12-20 01:38] VITALS: BMI 18.1
[2017-12-20 02:30] LABS: Troponin I 0.019 ng/mL (< 0.028)
[2017-12-20] MEDS ORDERED: hydrALAZINE 20 MG/ML VIAL SLOW IVP PRN (04:39)
[2017-12-20] MEDS ORDERED: Dextrose 50% Abboject 50 ML SYRINGE SLOW IVP PRN (04:39)
[2017-12-20] MEDS ORDERED: Ondansetron ODT 4 MG TAB PO PRN ×2 (04:39)
[2017-12-20] MEDS ORDERED: HumaLOG 300 UNITS/3 ML VIAL SC PRN ×2 (04:39)
[2017-12-20] MEDS ORDERED: Dextrose 5% in Water 1,000 ML IV PRN (04:39)
[2017-12-20] MEDS: Nitroglycerin 2% Ointment 1 INCH/1 GM Packet TOP SCH ×3 (05:10→21:25)
--- NOTE | 2017-12-20 05:18 | HP ---
PRIMARY CARE PHYSICIAN: Bessie Soni MD CHIEF COMPLAINT: Chest pain. HISTORY OF PRESENT ILLNESS: Ms. Gutierrez is a very pleasant 82-year-old female that has a history of hypertension, diabetes mellitus as well as coronary artery disease. She was in her usual state of he alth until Saturday when she says she noticed that she had a hurting in her chest and it radiated towa rds her back. When asked what brought the pain on, she said that she had been doing some raking and piling up some trash at her home when she noticed the pain. She did not have any shortness of breath . No nausea, no vomiting, no dizziness or lightheadedness, but she did notice that her heart was rac ing at that time. This occurred again on the night of admission and she was concerned because the pa in started going from the front to the back and then vice versa and she came to the ER and was found to be in atrial fibrillation with rapid ventricular response. She was given a dose of Cardizem IV as well as placed on a Cardizem drip and then shortly after that her heart rate improved, but she was s till in atrial fibrillation. It is noted that she had a recent hospitalization with atrial fibrillat ion with rapid ventricular response approximately 4 months ago. At that time, she had been out of on e of her medications, specifically the metoprolol and had been restarted on this particular medicatio n. At this time, she says she has been compliant with all of her medications and this episode still occurs. REVIEW OF SYSTEMS: Constitutional: There has been no fever, chills, no night sweats, no weight loss . HEENT: No headaches, no dizziness, no visual changes, no sore throat, rhinorrhea, neck pain, no a denopathy. Pulmonary: No hemoptysis, no cough, no wheezing. Cardiovascular: As the history of pre sent illness. No PND, no orthopnea. No lower extremity edema. Gastrointestinal: No abdominal pain , no nausea, no vomiting, no change in bowels. Genitourinary: No urinary frequency, hematuria, no h esitancy. Skin and integument: No skin changes. No rash. PAST MEDICAL HISTORY: Significant for atrial fibrillation, diabetes mellitus type 2, chronic anemia, coronary artery disease, hyperlipidemia, chronic kidney disease. PAST SURGICAL HISTORY: She has had coronary artery bypass grafting as well as a cardioversion. ALLERGIES: No known drug allergies. FAMILY HISTORY: Significant for diabetes in her father. SOCIAL HISTORY: She is . She had 6 children, 5 living. She is a nonsmoker, nondrinker. She lives on her own in her own home. She does have provider services to help out. CODE STATUS: FULL CODE. CURRENT MEDICATIONS: Include metformin 500 mg twice a day, pravastatin 40 mg at bedtime, metoprolol XL 200 mg twice a day, Imdur extended release 60 mg daily, iron 18 mg daily, fish oil 1000 mg daily, Edarbyclor 1 tablet daily, aspirin 81 mg daily, and Eliquis 2.5 mg twice a day. PHYSICAL EXAMINATION: GENERAL: She is alert and oriented. She appears to be in no acute distress. VITAL SIGNS: Her blood pressure was 182/92, heart rate 76, respiratory rate of 18, temperature is 98 .1. HEENT: Pupils are equal, round, and reactive. Extraocular muscles are intact. Her sclerae are anic teric. Throat, no erythema, no exudates. NECK: No adenopathy, no bruits. LUNGS: Clear to auscultation. There is no wheezing, no rales. CARDIOVASCULAR: Her heart rhythm is irregular, rate is approximately 70. There is no murmurs apprec iated. ABDOMEN: Soft, nontender, nondistended. Positive for bowel sounds. No rebound, no guarding. EXTREMITIES: There is no edema. NEUROLOGIC: The exam is nonfocal. LABORATORY RESULTS: Her EKG with atrial fibrillation, initially with rapid ventricular response in t he 120 range. Now her heart rate is in the 70s. Troponins are 0.015 and 0.019. White blood cell co unt was 7.4, hemoglobin 12.4, hematocrit is 41.4, platelet count was 181. Sodium 137, potassium 5.2, chloride is 98, CO2 is 26, BUN of 15, creatinine of 1.0, glucose is 122. ASSESSMENT AND PLAN: 1. This is a pleasant 82-year-old female that presents to the emergency room with atrial fibrillatio n with rapid ventricular response while being compliant with medications. She was on a Cardizem drip transiently in order to control her rate. She has been placed on the telemetry floor. We will cont inue her home medications and consult Cardiology for further recommendations. 2. With regards to diabetes mellitus, we will hold metformin for now and placed her on a sliding sca le insulin. This can be restarted if there is no indication for any testing such as cardiac catheter ization, etc. 3. Coronary artery disease, again we will restart her usual home medications and await further recom mendations from Cardiology.
[2017-12-20] MEDS ORDERED: Artificial Tears 18 DROP/0.9 ML EA EYE PRN (07:24)
[2017-12-20] MEDS ORDERED: Chloraseptic Spray 180 ml Bottle PO PRN (07:24)
[2017-12-20] MEDS ORDERED: Loperamide HCl 2 MG CAP PO PRN (07:24)
[2017-12-20] MEDS ORDERED: Senokot 8.6 MG TAB PO PRN (07:24)
[2017-12-20] MEDS ORDERED: Milk Of Magnesia 30 ML UDCUP PO PRN (07:24)
[2017-12-20] MEDS ORDERED: Mag-Al 1200 mg/1200 mg/30 ML UDCUP PO PRN (07:24)
[2017-12-20] MEDS ORDERED: Temazepam 15 MG CAP PO PRN (07:24)
[2017-12-20] MEDS ORDERED: Diabetic Tussin 200 MG/10 ML UDCUP PO PRN (07:24)
[2017-12-20] MEDS ORDERED: Sodium Chloride 0.65% Nasal 44 ML BOT EA NARE PRN (07:24)
[2017-12-20] MEDS ORDERED: Loratadine 10 MG TAB PO PRN (07:24)
[2017-12-20] MEDS ORDERED: HYDROcodone/Acetaminophen 5/325 mg Tablet PO PRN (07:24)
[2017-12-20] MEDS ORDERED: Eucerin (Mineral Oil/Petrolatum,White) 30 gm Jar TOP PRN (07:24)
[2017-12-20] MEDS: Apixaban 5 MG TAB PO SCH ×2 (08:56→21:24)
[2017-12-20] MEDS: metFORMIN 500 MG TAB PO SCH ×2 (08:56→17:29)
[2017-12-20] MEDS: Aspirin 81 mg Enteric Coated Tablet PO SCH (08:57)
[2017-12-20] MEDS: Famotidine 20 MG TAB PO SCH ×2 (08:57→21:23)
[2017-12-20] MEDS: Ferrous Sulfate 325 MG TAB PO SCH (08:57)
[2017-12-20] MEDS: Chlorthalidone 25 MG TAB PO SCH (08:59)
[2017-12-20] MEDS ORDERED: AZILSARTAN MED PO SCH (09:00)
[2017-12-20] MEDS: Fish Oil 1,000 MG CAP PO SCH (09:00)
[2017-12-20] MEDS ORDERED: CHLORTHALIDONE PO SCH (09:00)
[2017-12-20] MEDS: Losartan 25 MG TAB PO SCH (09:02)
--- NOTE | 2017-12-20 09:55 | PDOC.PN ---
- Subjective Encounter Start Date: 12/20/17 Encounter Start Time: 08:15 Patient seen and examined. No new complaints. No overnight events - Objective Resuscitation Status: Resuscitation Status FULL:Full Resuscitation MAR Reviewed: Yes Vital Signs & Weight: Vital Signs (12 hours) Temp Pulse Resp BP Pulse Ox 12/20/17 07:21 98.1 F 70 16 159/86 H 99 12/20/17 04:00 98.1 F 71 18 180/88 H 98 12/20/17 00:40 98.1 F 76 18 182/92 H 97 Weight Admit Weight 98 lb 12.8 oz Weight 98 lb 12.8 oz I&O: 12/19/17 12/20/17 12/21/17 06:59 06:59 06:59 Intake Total 660 Balance 660 Additional Labs: Accuchecks 12/20/17 05:35 POC Glucose 235 H Radiology Reviewed by me: Yes EKG Reviewed by me: Yes (afib) Phys Exam - Physical Examination Constitutional: NAD HEENT: PERRLA, moist MMs, sclera anicteric Neck: no JVD, supple Respiratory: no wheezing, no rales, no rhonchi Cardiovascular: no significant murmur, irregular Gastrointestinal: soft, non-tender, no distention, positive bowel sounds Musculoskeletal: no edema, pulses present Neurological: non-focal, normal sensation, moves all 4 limbs Lymphatic: no nodes Psychiatric: normal affect, A&O x 3 Skin: no rash, normal turgor Dx/Plan (1) Atrial fibrillation with RVR Code(s): I48.91 - UNSPECIFIED ATRIAL FIBRILLATION Status: Acute Comment: controlled (2) Anemia, normocytic normochromic Code(s): D64.9 - ANEMIA, UNSPECIFIED Status: Chronic (3) CAD (coronary artery disease) Code(s): I25.10 - ATHSCL HEART DISEASE OF [place] CORONARY ARTERY W/O ANG PCTRS Status: Chronic (4) Chronic anticoagulation Code(s): Z79.01 - DIRECTOR OF RADIOLOGY (CURRENT) USE OF ANTICOAGULANTS Status: Chronic (5) Diabetes type 2, controlled Code(s): E11.9 - TYPE 2 DIABETES MELLITUS WITHOUT COMPLICATIONS Status: Chronic (6) Dyslipidemia Code(s): E78.5 - HYPERLIPIDEMIA, UNSPECIFIED Status: Chronic (7) Hypertension Code(s): I10 - ESSENTIAL (PRIMARY) HYPERTENSION Status: Chronic - Plan cont current plan of care, plan discussed w/ family * currently rate controlled * cardiology consulted * will monitor today * if stable by tomorrow, she can be discharged if cardiology Ok * updated plan to son bedside * medication reviewed as below * symptomatic treatment. Review of Systems - Review of Systems ENT: negative: Ear Pain, Ear Discharge, Nose Pain, Nose Discharge, Nose Congestion, Mouth Pain, Mouth Swelling, Throat Pain, Throat Swelling, Other Respiratory: negative: Cough, Dry, Shortness of Breath, Hemoptysis, SOB with Excertion, Pleuritic Pain, Sputum, Wheezing Cardiovascular: negative: chest pain, palpitations, orthopnea, paroxysmal nocturnal dyspnea, edema, light headedness, other Gastrointestinal: negative: Nausea, Vomiting, Abdominal Pain, Diarrhea, Constipation, Melena, Hematochezia, Other Genitourinary: negative: Dysuria, Frequency, Incontinence, Hematuria, Retention , Other Musculoskeletal: negative: Neck Pain, Shoulder Pain, Arm Pain, Back Pain, Hand Pain, Leg Pain, Foot Pain, Other Skin: negative: Rash, Lesions, Cristopher, Bruising, Other - Medications/Allergies Allergies/Adverse Reactions: Allergies Allergy/AdvReac Type Severity Reaction Status Date / Time No Known Allergies Allergy Unverified 09/06/15 10:27 Medications: Current Medications Acetaminophen (Tylenol) 650 mg PO Q4H PRN PRN Reason: Headache/Fever or Pain Hydrocodone Bitart/Acetaminophen ([place] 5/325) 1 tab PO Q4H PRN PRN Reason: Moderate Pain (4-6) Al Hydroxide/Mg Hydroxide (Maalox) 15 ml PO Q4H PRN PRN Reason: Heartburn or Indigestion Apixaban (Eliquis) 2.5 mg PO BID [facility] Last Admin: 12/20/17 08:56 Dose: 2.5 mg Artificial Tears (Tears Naturale) 0 drop EA EYE PRN PRN PRN Reason: Dry Eyes Aspirin (Ecotrin) 81 mg PO DAILY [facility] Last Admin: 12/20/17 08:57 Dose: 81 mg Chlorthalidone ([place]yg[place]) 12.5 mg PO DAILY [facility] Last Admin: 12/20/17 08:59 Dose: 12.5 mg Dextrose/Water (Dextrose 50%) 25 gm SLOW IVP PRN PRN PRN Reason: Hypoglycemia Famotidine (Pepcid) 20 mg PO BID [facility] Last Admin: 12/20/17 08:57 Dose: 20 mg Ferrous Sulfate (Feosol) 325 mg PO DAILY [facility] Last Admin: 12/20/17 08:57 Dose: 325 mg Fish Oil (Fish Oil) 1,000 mg PO QAM [facility] Last Admin: 12/20/17 09:00 Dose: 1,000 mg Glucagon (Glucagon) 1 mg IM PRN PRN PRN Reason: Hypoglycemia Guaifenesin (Robitussin Sf) 200 mg PO Q4H PRN PRN Reason: Cough Hydralazine HCl (Apresoline) 10 mg SLOW IVP Q4H PRN PRN Reason: Systolic BP > 180 Dextrose/Water (D5w) 1,000 mls @ 0 mls/hr IV .Q0M PRN; As Directed PRN Reason: Hypoglycemia Insulin Human Lispro (Humalog) 0 units SC .MILD SLIDING SCALE PRN PRN Reason: Mild Correctional Scale Insulin Human Lispro (Humalog) 0 units SC .BEDTIME SLIDING SC PRN PRN Reason: Bedtime Correctional Scale Isosorbide Mononitrate (Imdur Er) 60 mg PO DAILY [facility] Last Admin: 12/20/17 08:57 Dose: 60 mg Loperamide HCl (Imodium) 2 mg PO PRN PRN PRN Reason: Diarrhea/Loose Stools Loratadine (Claritin) 10 mg PO DAILYPRN PRN PRN Reason: Sinus Symptoms Losartan Potassium (Cozaar) 100 mg PO DAILY [facility] Last Admin: 12/20/17 09:02 Dose: 100 mg Magnesium Hydroxide (Milk Of Magnesium) 30 ml PO DAILYPRN PRN PRN Reason: Constipation Metformin HCl (Glucophage) 500 mg PO BID-[facility] Last Admin: 12/20/17 08:56 Dose: 500 mg Metoprolol Succinate (Toprol Xl) 200 mg PO BID [facility] Last Admin: 12/20/17 08:58 Dose: 200 mg Mineral Oil/White Petrolatum (Eucerin Cream) 0 gm TOP BIDPRN PRN PRN Reason: Dry Skin Nitroglycerin (Nitro-Bid 2% Ointment) 0.5 inch TOP Q8HR [facility] Last Admin: 12/20/17 05:10 Dose: 0.5 inch Ondansetron HCl (Zofran Odt) 4 mg PO Q6H PRN PRN Reason: Nausea/Vomiting Ondansetron HCl (Zofran) 4 mg IVP Q6H PRN PRN Reason: Nausea/Vomiting Phenol (Chloraseptic [place] 180 Ml Bot) 0 ml PO PRN PRN PRN Reason: Sore Throat Pravastatin Sodium (Pravachol) 40 mg PO HS JAEL Senna (Senokot) 2 tab PO HSPRN PRN PRN Reason: Constipation Sodium Chloride ([place] Nasal [place] 0.65%) 0 ml EA NARE QIDPRN PRN PRN Reason: Nasal Congestion Temazepam (Restoril) 15 mg PO HSPRN PRN PRN Reason: Insomnia
--- NOTE | 2017-12-20 13:46 | CON ---
DATE OF CONSULTATION: HISTORY OF PRESENT ILLNESS: The patient is a pleasant an 82-year-old woman with a history of coronary bypass graft surgery who presents with rapid palpitations and chest discomfort. The patient has previously undergone coronary bypass surgery. She also has a history of atrial fibrillation with previously undergone electrocardioversion. The patient has permanent atrial fibrillation and been on chronic anticoagulation therapy. The patient has difficulty with atrial fibrillation with rapid ventricular response. She was admitted in August of this year. She was started on digoxin. The patient recently has had increasing weight loss and some nausea. The patient was taken off digoxin. She presented to the emergency room with chest discomfort and rapid palpitations. PAST MEDICAL HISTORY: 1. Coronary artery bypass graft surgery. 2. Atrial fibrillation. 3. Hypertension. 4. Hyperlipidemia. 5. Diabetes mellitus. 6. Chronic renal insufficiency. PAST SURGICAL HISTORY: Coronary bypass graft surgery. SOCIAL HISTORY: Nonsmoker. FAMILY HISTORY: No strong family history of heart disease. ALLERGIES: None. MEDICATIONS: See nursing list. REVIEW OF SYSTEMS: 10-point system otherwise unremarkable. No history of easy bruising or bleeding. PHYSICAL EXAMINATION: GENERAL: This is a thin cachectic woman, in no acute distress with a blood pressure 162/85. NECK: Showed no jugular venous distention. LUNGS: Clear to auscultation. HEART: Irregular rate and rhythm, normal S1, S2 with a 2/6 systolic murmur. ABDOMEN: Nondistended. EXTREMITIES: No edema. LABORATORY RESULTS: Her white blood cell count 7.4, hemoglobin 12.4, hematocrit 41.4, platelets 181. Sodium is 137, potassium 5.2, chloride 98, bicarbonate 26, BUN 15, creatinine 1.0. Troponin was 0.019. Her EKG revealed atrial fibrillation with a nonspecific ST-T wave abnormality. IMPRESSION: 1. Recurrent atrial fibrillation with rapid ventricular response. 2. History of coronary bypass surgery. 3. Hypertension. 4. Dyslipidemia. 5. Diabetes mellitus. 6. Cachexia. IMPRESSIONS: This patient presents again with rapid atrial fibrillation. She was taken off digoxin due to her weight loss and possible side effects from digoxin. We would recommend the patient be started on Cardizem. We will need to monitor the patient and see if her heart rate remains controlled and does not become to slow. we will monitor her heart rate with this medication. We will follow this patient with you through hospitalization. If symptoms persist , she may need an electronic pacemaker and ablation. [facility]
[2017-12-20] MEDS: Pravastatin Sodium 40 MG TAB PO SCH (21:23)
[2017-12-21 05:29] LABS: #Lymphocytes 1.9 thou/uL (1.20-3.40); #Monocytes 0.6 thou/uL (0.11-0.59); #Neutrophils 3.1 thou/uL (1.40-6.50); %Basophils 0.5 % (0.0-1.0); %Eosinophils 0.8 % (0.0-10.0); %Lymphocytes 34.2 % (21.0-51.0); %Monocytes 9.8 % (0.0-10.0); %Neutrophils 54.6 % (42.0-75.0); Mean Corpuscular Hemoglobin 30.1 pg (27.0-31.0); Mean Corpuscular Volume 93.9 fl (81.0-99.0); Mean Platelet Volume 8.8 fL (7.4-10.4); Platelet Count 170 thou/uL (130-400); RBC Distribution Width 13.8 % (11.5-14.5); Red Blood Cell (RBC) Count 3.34 mill/uL (4.20-5.40); White Blood Cell (WBC) Count 5.6 thou/uL (4.8-10.8)
[2017-12-21 05:40] LABS: Anion Gap 12 mmol/L (10-20); BUN (Urea Nitrogen) 15 mg/dL (9.8-20.1); Calc. Creatinine Clearance 36 mL/min (70-130); Carbon Dioxide 30 mmol/L (23-31); Chloride 97 mmol/L (98-107); Estimated GFR-MDRD 79; Glucose 91 mg/dL (83-110); Potassium 3.9 mmol/L (3.5-5.1); Sodium 135 mmol/L (136-145)
[2017-12-21] MEDS: Nitroglycerin 2% Ointment 1 INCH/1 GM Packet TOP SCH ×3 (05:55→20:50)
--- NOTE | 2017-12-21 07:39 | PDOC.PN ---
- Subjective Encounter Start Date: 12/21/17 Encounter Start Time: 07:37 Subjective: Seen and examined feeling better -rate controlled - Objective Resuscitation Status: Resuscitation Status FULL:Full Resuscitation Vital Signs & Weight: Vital Signs (12 hours) Temp Pulse Resp BP Pulse Ox 12/21/17 04:00 98.5 F 64 21 H 149/81 H 95 12/20/17 23:28 160/96 H 12/20/17 23:25 98.8 F 94 15 175/98 H 97 12/20/17 20:20 98 F 90 17 98 12/20/17 20:18 98.0 F 90 17 166/80 H 98 Weight Admit Weight 98 lb 12.8 oz Weight 99 lb 4.8 oz I&O: 12/20/17 12/21/17 12/22/17 06:59 06:59 06:59 Intake Total 2837 Output Total 850 Balance 1986 Result Diagrams: 12/21/17 04:57 12/21/17 04:57 Additional Labs: Accuchecks 12/21/17 12/20/17 12/20/17 05:55 20:31 17:33 POC Glucose 84 137 H 114 H 12/20/17 12/20/17 16:54 13:01 POC Glucose 109 115 H Phys Exam - Physical Examination Constitutional: NAD HEENT: PERRLA, moist MMs, sclera anicteric, TM's clear Neck: no nodes, no JVD, supple, full ROM Respiratory: no wheezing, no rales, no rhonchi, clear to auscultation bilateral Cardiovascular: RRR, no significant murmur, no rub Gastrointestinal: soft, non-tender, no distention, positive bowel sounds Musculoskeletal: no edema, pulses present Dx/Plan (1) Atrial fibrillation with RVR Code(s): I48.91 - UNSPECIFIED ATRIAL FIBRILLATION Status: Acute Comment: controlled (2) Anemia, normocytic normochromic Code(s): D64.9 - ANEMIA, UNSPECIFIED Status: Chronic (3) CAD (coronary artery disease) Code(s): I25.10 - ATHSCL HEART DISEASE OF [place] CORONARY ARTERY W/O ANG PCTRS Status: Chronic (4) Chronic anticoagulation 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
[2017-12-21] MEDS: Chlorthalidone 25 MG TAB PO SCH (08:34)
[2017-12-21] MEDS: Ferrous Sulfate 325 MG TAB PO SCH (08:34)
[2017-12-21] MEDS: Apixaban 5 MG TAB PO SCH ×2 (08:35→20:48)
[2017-12-21] MEDS: Losartan 25 MG TAB PO SCH (08:35)
[2017-12-21] MEDS: Fish Oil 1,000 MG CAP PO SCH (08:35)
[2017-12-21] MEDS: metFORMIN 500 MG TAB PO SCH ×2 (08:36→16:31)
[2017-12-21] MEDS: Famotidine 20 MG TAB PO SCH ×2 (08:36→20:48)
[2017-12-21] MEDS: Aspirin 81 mg Enteric Coated Tablet PO SCH (08:36)
--- NOTE | 2017-12-21 17:05 | EKG ---
Test Reason : Blood Pressure : / mmHG Vent. Rate : 074 BPM Atrial Rate : 078 BPM P-R Int : 000 ms QRS Dur : 066 ms QT Int : 390 ms P-R-T Axes : 000 061 -60 degrees QTc Int : 432 ms Atrial fibrillation Nonspecific ST and T wave abnormality , probably digitalis effect Abnormal ECG Confirmed by MALISSA SHAIKH D.O. ([id number]), script editor HENNA BERMEO ([id number]) on 12/21/2017 5:04:42 PM Referred By: Confirmed By:MALISSA SHAIKH D.O.
[2017-12-21] MEDS: Pravastatin Sodium 40 MG TAB PO SCH (20:50)
[2017-12-22] MEDS: Nitroglycerin 2% Ointment 1 INCH/1 GM Packet TOP SCH ×3 (05:13→21:02)
[2017-12-22] MEDS: metFORMIN 500 MG TAB PO SCH ×2 (09:23→17:01)
[2017-12-22] MEDS: Famotidine 20 MG TAB PO SCH ×2 (09:24→20:58)
[2017-12-22] MEDS: Apixaban 5 MG TAB PO SCH ×2 (09:24→20:57)
[2017-12-22] MEDS: Chlorthalidone 25 MG TAB PO SCH (09:27)
[2017-12-22] MEDS: Fish Oil 1,000 MG CAP PO SCH (09:30)
[2017-12-22] MEDS: Ferrous Sulfate 325 MG TAB PO SCH (09:30)
[2017-12-22] MEDS: Losartan 25 MG TAB PO SCH (09:30)
[2017-12-22] MEDS: Aspirin 81 mg Enteric Coated Tablet PO SCH (09:34)
--- NOTE | 2017-12-22 10:12 | PDOC.PN ---
- Subjective Encounter Start Date: 12/22/17 Encounter Start Time: 08:20 Patient seen and examined. No new complaints. No overnight events - Objective Resuscitation Status: Resuscitation Status FULL:Full Resuscitation MAR Reviewed: Yes Vital Signs & Weight: Vital Signs (12 hours) Temp Pulse Resp BP Pulse Ox 12/22/17 04:00 97.8 F 71 20 165/84 H 93 L 12/22/17 03:13 99 12/22/17 00:00 18 Weight Admit Weight 98 lb 12.8 oz Weight 97 lb 6.4 oz I&O: 12/21/17 12/22/17 12/23/17 06:59 06:59 06:59 Intake Total 2837 920 Output Total 850 1400 Balance 1986 Result Diagrams: 12/21/17 04:57 12/21/17 04:57 Additional Labs: Accuchecks 12/22/17 12/21/17 12/21/17 05:24 20:15 17:12 POC Glucose 85 112 H 74 12/21/17 11:04 POC Glucose 137 H EKG Reviewed by me: Yes Phys Exam - Physical Examination Constitutional: NAD HEENT: PERRLA, moist MMs, sclera anicteric Neck: no JVD, supple Respiratory: no wheezing, no rales, no rhonchi Cardiovascular: no significant murmur, irregular Gastrointestinal: soft, non-tender, no distention, positive bowel sounds Musculoskeletal: no edema, pulses present Neurological: non-focal, normal sensation Lymphatic: no nodes Psychiatric: normal affect, A&O x 3 Skin: no rash, normal turgor Dx/Plan (1) Atrial fibrillation with RVR Code(s): I48.91 - UNSPECIFIED ATRIAL FIBRILLATION Status: Acute Comment: controlled (2) Anemia, normocytic normochromic Code(s): D64.9 - ANEMIA, UNSPECIFIED Status: Chronic (3) CAD (coronary artery disease) Code(s): I25.10 - ATHSCL HEART DISEASE OF [place] CORONARY ARTERY W/O ANG PCTRS Status: Chronic (4) Chronic anticoagulation 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 Review of Systems - Review of Systems ENT: negative: Ear Pain, Ear Discharge, Nose Pain, Nose Discharge, Nose Congestion, Mouth Pain, Mouth Swelling, Throat Pain, Throat Swelling, Other Respiratory: negative: Cough, Dry, Shortness of Breath, Hemoptysis, SOB with Excertion, Pleuritic Pain, Sputum, Wheezing Cardiovascular: negative: chest pain, palpitations, orthopnea, paroxysmal nocturnal dyspnea, edema, light headedness, other Gastrointestinal: negative: Nausea, Vomiting, Abdominal Pain, Diarrhea, Constipation, Melena, Hematochezia, Other Genitourinary: negative: Dysuria, Frequency, Incontinence, Hematuria, Retention , Other Musculoskeletal: negative: Neck Pain, Shoulder Pain, Arm Pain, Back Pain, Hand Pain, Leg Pain, Foot Pain, Other Skin: negative: Rash, Lesions, Cristopher, Bruising, Other - Medications/Allergies Allergies/Adverse Reactions: Allergies Allergy/AdvReac Type Severity Reaction Status Date / Time No Known Allergies Allergy Unverified 09/06/15 10:27 Medications: Current Medications Acetaminophen (Tylenol) 650 mg PO Q4H PRN PRN Reason: Headache/Fever or Pain Hydrocodone Bitart/Acetaminophen ([place] 5/325) 1 tab PO Q4H PRN PRN Reason: Moderate Pain (4-6) Al Hydroxide/Mg Hydroxide (Maalox) 15 ml PO Q4H PRN PRN Reason: Heartburn or Indigestion Apixaban (Eliquis) 2.5 mg PO BID [facility] Last Admin: 12/22/17 09:24 Dose: 2.5 mg Artificial Tears (Tears Naturale) 0 drop EA EYE PRN PRN PRN Reason: Dry Eyes Aspirin (Ecotrin) 81 mg PO DAILY [facility] Last Admin: 12/22/17 09:34 Dose: 81 mg Chlorthalidone (Hygroton) 12.5 mg PO DAILY [facility] Last Admin: 12/22/17 09:27 Dose: 12.5 mg Dextrose/Water (Dextrose 50%) 25 gm SLOW IVP PRN PRN PRN Reason: Hypoglycemia Diltiazem HCl (Cardizem Cd) 120 mg PO 1400 [facility] Last Admin: 12/21/17 15:02 Dose: 120 mg Famotidine (Pepcid) 20 mg PO BID [facility] Last Admin: 12/22/17 09:24 Dose: 20 mg Ferrous Sulfate (Feosol) 325 mg PO DAILY [facility] Last Admin: 12/22/17 09:30 Dose: 325 mg Fish Oil (Fish Oil) 1,000 mg PO QAM [facility] Last Admin: 12/22/17 09:30 Dose: 1,000 mg Glucagon (Glucagon) 1 mg IM PRN PRN PRN Reason: Hypoglycemia Guaifenesin (Robitussin Sf) 200 mg PO Q4H PRN PRN Reason: Cough Hydralazine HCl (Apresoline) 10 mg SLOW IVP Q4H PRN PRN Reason: Systolic BP > 180 Dextrose/Water (D5w) 1,000 mls @ 0 mls/hr IV .Q0M PRN; As Directed PRN Reason: Hypoglycemia Insulin Human Lispro (Humalog) 0 units SC .MILD SLIDING SCALE PRN PRN Reason: Mild Correctional Scale Insulin Human Lispro (Humalog) 0 units SC .BEDTIME SLIDING SC PRN PRN Reason: Bedtime Correctional Scale Isosorbide Mononitrate (Imdur Er) 60 mg PO DAILY [facility] Last Admin: 12/22/17 09:30 Dose: 60 mg Loperamide HCl (Imodium) 2 mg PO PRN PRN PRN Reason: Diarrhea/Loose Stools Loratadine (Claritin) 10 mg PO DAILYPRN PRN PRN Reason: Sinus Symptoms Losartan Potassium (Cozaar) 100 mg PO DAILY [facility] Last Admin: 12/22/17 09:30 Dose: 100 mg Magnesium Hydroxide (Milk Of Magnesium) 30 ml PO DAILYPRN PRN PRN Reason: Constipation Metformin HCl (Glucophage) 500 mg PO BID-WM [facility] Last Admin: 12/22/17 09:23 Dose: 500 mg Metoprolol Succinate (Toprol Xl) 200 mg PO DAILY [facility] Last Admin: 12/22/17 09:31 Dose: 200 mg Mineral Oil/White Petrolatum (Eucerin Cream) 0 gm TOP BIDPRN PRN PRN Reason: Dry Skin Nitroglycerin (Nitro-Bid 2% Ointment) 0.5 inch TOP Q8HR [facility] Last Admin: 12/22/17 05:13 Dose: 0.5 inch Ondansetron HCl (Zofran Odt) 4 mg PO Q6H PRN PRN Reason: Nausea/Vomiting Ondansetron HCl (Zofran) 4 mg IVP Q6H PRN PRN Reason: Nausea/Vomiting Phenol (Chloraseptic [place] 180 Ml Bot) 0 ml PO PRN PRN PRN Reason: Sore Throat Pravastatin Sodium (Pravachol) 40 mg PO [facility] Last Admin: 12/21/17 20:50 Dose: 40 mg Senna (Senokot) 2 tab PO HSPRN PRN PRN Reason: Constipation Sodium Chloride ([place] Nasal [place] 0.65%) 0 ml EA NARE QIDPRN PRN PRN Reason: Nasal Congestion Temazepam (Restoril) 15 mg PO HSPRN PRN PRN Reason: Insomnia
[2017-12-22] MEDS: Pravastatin Sodium 40 MG TAB PO SCH (20:58)
[2017-12-23] MEDS: Nitroglycerin 2% Ointment 1 INCH/1 GM Packet TOP SCH (05:33)
[2017-12-23] MEDS: Ferrous Sulfate 325 MG TAB PO SCH (09:13)
[2017-12-23] MEDS: Aspirin 81 mg Enteric Coated Tablet PO SCH (09:13)
[2017-12-23] MEDS: Fish Oil 1,000 MG CAP PO SCH (09:13)
[2017-12-23] MEDS: Famotidine 20 MG TAB PO SCH (09:13)
[2017-12-23] MEDS: Chlorthalidone 25 MG TAB PO SCH (09:13)
[2017-12-23] MEDS: Apixaban 5 MG TAB PO SCH (09:13)
[2017-12-23] MEDS: metFORMIN 500 MG TAB PO SCH (09:13)
[2017-12-23] MEDS: Losartan 25 MG TAB PO SCH (09:14)
--- NOTE | 2017-12-23 10:21 | PDOC.PN ---
- Subjective Encounter Start Date: 12/23/17 Encounter Start Time: 07:40 Patient seen and examined. No new complaints. No overnight events - Objective Resuscitation Status: Resuscitation Status FULL:Full Resuscitation MAR Reviewed: Yes Vital Signs & Weight: Vital Signs (12 hours) Temp Pulse Resp BP BP Pulse Ox 12/23/17 09:04 98.5 F 75 16 184/116 H 100 12/23/17 03:31 98.3 F 93 16 185/86 H 96 12/23/17 00:00 20 Weight Admit Weight 98 lb 12.8 oz Weight 95 lb 6.4 oz I&O: 12/22/17 12/23/17 12/24/17 06:59 06:59 06:59 Intake Total 920 1400 Output Total 1400 2300 Balance -480 -900 Result Diagrams: 12/21/17 04:57 12/21/17 04:57 Additional Labs: Accuchecks 12/23/17 12/22/17 12/22/17 06:42 20:27 15:19 POC Glucose 86 113 H 90 12/22/17 10:54 POC Glucose 161 H EKG Reviewed by me: Yes Phys Exam - Physical Examination Constitutional: NAD HEENT: PERRLA, moist MMs, sclera anicteric Neck: no JVD, supple Respiratory: no wheezing, no rales, no rhonchi Cardiovascular: no significant murmur, irregular Gastrointestinal: soft, non-tender, no distention, positive bowel sounds Musculoskeletal: no edema, pulses present Neurological: non-focal, normal sensation Psychiatric: normal affect, A&O x 3 Skin: no rash, normal turgor Dx/Plan (1) Atrial fibrillation with RVR Code(s): I48.91 - UNSPECIFIED ATRIAL FIBRILLATION Status: Acute Comment: controlled (2) Anemia, normocytic normochromic Code(s): D64.9 - ANEMIA, UNSPECIFIED Status: Chronic (3) CAD (coronary artery disease) Code(s): I25.10 - ATHSCL HEART DISEASE OF [place] CORONARY ARTERY W/O ANG PCTRS Status: Chronic (4) Chronic anticoagulation 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 Review of Systems - Review of Systems Eyes: negative: Pain, Vision Change, Conjunctivae Inflammation, Eyelid Inflammation, Redness, Other ENT: negative: Ear Pain, Ear Discharge, Nose Pain, Nose Discharge, Nose Congestion, Mouth Pain, Mouth Swelling, Throat Pain, Throat Swelling, Other Respiratory: negative: Cough, Dry, Shortness of Breath, Hemoptysis, SOB with Excertion, Pleuritic Pain, Sputum, Wheezing Cardiovascular: negative: chest pain, palpitations, orthopnea, paroxysmal nocturnal dyspnea, edema, light headedness, other Gastrointestinal: negative: Nausea, Vomiting, Abdominal Pain, Diarrhea, Constipation, Melena, Hematochezia, Other Genitourinary: negative: Dysuria, Frequency, Incontinence, Hematuria, Retention , Other Musculoskeletal: negative: Neck Pain, Shoulder Pain, Arm Pain, Back Pain, Hand Pain, Leg Pain, Foot Pain, Other - Medications/Allergies Allergies/Adverse Reactions: Allergies Allergy/AdvReac Type Severity Reaction Status Date / Time No Known Allergies Allergy Unverified 09/06/15 10:27 Medications: Current Medications Acetaminophen (Tylenol) 650 mg PO Q4H PRN PRN Reason: Headache/Fever or Pain Hydrocodone Bitart/Acetaminophen ([place] 5/325) 1 tab PO Q4H PRN PRN Reason: Moderate Pain (4-6) Al Hydroxide/Mg Hydroxide (Maalox) 15 ml PO Q4H PRN PRN Reason: Heartburn or Indigestion Apixaban (Eliquis) 2.5 mg PO BID [facility] Last Admin: 12/23/17 09:13 Dose: 2.5 mg Artificial Tears (Tears Naturale) 0 drop EA EYE PRN PRN PRN Reason: Dry Eyes Aspirin (Ecotrin) 81 mg PO DAILY [facility] Last Admin: 12/23/17 09:13 Dose: 81 mg Chlorthalidone (Hygroton) 12.5 mg PO DAILY [facility] Last Admin: 12/23/17 09:13 Dose: 12.5 mg Dextrose/Water (Dextrose 50%) 25 gm SLOW IVP PRN PRN PRN Reason: Hypoglycemia Diltiazem HCl (Cardizem Cd) 180 mg PO DAILY [facility] Last Admin: 12/23/17 09:13 Dose: 180 mg Famotidine (Pepcid) 20 mg PO BID [facility] Last Admin: 12/23/17 09:13 Dose: 20 mg Ferrous Sulfate (Feosol) 325 mg PO DAILY [facility] Last Admin: 12/23/17 09:13 Dose: 325 mg Fish Oil (Fish Oil) 1,000 mg PO QAM [facility] Last Admin: 12/23/17 09:13 Dose: 1,000 mg Glucagon (Glucagon) 1 mg IM PRN PRN PRN Reason: Hypoglycemia Guaifenesin (Robitussin Sf) 200 mg PO Q4H PRN PRN Reason: Cough Hydralazine HCl (Apresoline) 10 mg SLOW IVP Q4H PRN PRN Reason: Systolic BP > 180 Dextrose/Water (D5w) 1,000 mls @ 0 mls/hr IV .Q0M PRN; As Directed PRN Reason: Hypoglycemia Insulin Human Lispro (Humalog) 0 units SC .MILD SLIDING SCALE PRN PRN Reason: Mild Correctional Scale Insulin Human Lispro (Humalog) 0 units SC .BEDTIME SLIDING SC PRN PRN Reason: Bedtime Correctional Scale Isosorbide Mononitrate (Imdur Er) 60 mg PO DAILY [facility] Last Admin: 12/23/17 09:14 Dose: 60 mg Loperamide HCl (Imodium) 2 mg PO PRN PRN PRN Reason: Diarrhea/Loose Stools Loratadine (Claritin) 10 mg PO DAILYPRN PRN PRN Reason: Sinus Symptoms Losartan Potassium (Cozaar) 100 mg PO DAILY [facility] Last Admin: 12/23/17 09:14 Dose: 100 mg Magnesium Hydroxide (Milk Of Magnesium) 30 ml PO DAILYPRN PRN PRN Reason: Constipation Metformin HCl (Glucophage) 500 mg PO BID-[facility] Last Admin: 12/23/17 09:13 Dose: 500 mg Metoprolol Succinate (Toprol Xl) 200 mg PO DAILY [facility] Last Admin: 12/23/17 09:14 Dose: 200 mg Mineral Oil/White Petrolatum (Eucerin Cream) 0 gm TOP BIDPRN PRN PRN Reason: Dry Skin Nitroglycerin (Nitro-Bid 2% Ointment) 0.5 inch TOP Q8HR [facility] Last Admin: 12/23/17 05:33 Dose: 0.5 inch Ondansetron HCl (Zofran Odt) 4 mg PO Q6H PRN PRN Reason: Nausea/Vomiting Ondansetron HCl (Zofran) 4 mg IVP Q6H PRN PRN Reason: Nausea/Vomiting Phenol (Chloraseptic [place] 180 Ml Bot) 0 ml PO PRN PRN PRN Reason: Sore Throat Pravastatin Sodium (Pravachol) 40 mg PO HS [facility] Last Admin: 12/22/17 20:58 Dose: 40 mg Senna (Senokot) 2 tab PO HSPRN PRN PRN Reason: Constipation Sodium Chloride ([place] Nasal [place] 0.65%) 0 ml EA NARE QIDPRN PRN PRN Reason: Nasal Congestion Temazepam (Restoril) 15 mg PO HSPRN PRN PRN Reason: Insomnia
--- NOTE | 2017-12-23 11:41 | DIS ---
PRIMARY CARE PHYSICIAN: Dr. Bessie Soni DATE OF ADMISSION: 12/19/2017 DATE OF DISCHARGE: 12/23/2017 DISCHARGE DISPOSITION: Home with home health. PRIMARY DISCHARGE DIAGNOSIS: Atrial fibrillation with rapid ventricular response. SECONDARY DISCHARGE DIAGNOSES: Protein calorie malnutrition, moderate; hypertension, dyslipidemia, d iabetes type 2, chronic anticoagulation, coronary artery disease, normocytic normochromic anemia. PRIMARY PROCEDURE/OPERATION: None. RADIOLOGICAL INVESTIGATION: None. SIGNIFICANT LABORATORY DATA: WBC 5.6, hemoglobin 10.0, platelets 170, sodium 135, creatinine 0.83, c alcium 9.0. Cardiac enzymes negative. DISCHARGE MEDICATIONS: Eliquis 2.5 mg p.o. b.i.d., aspirin 81 mg p.o. daily, azilsartan with chlorth alidone 40/12.5 one tablet p.o. daily, Cardizem-CD 120 mg p.o. daily, fish oil 1000 mg p.o. daily, ir on 18 mg p.o. daily, Imdur 60 mg daily, metformin 500 mg p.o. b.i.d., Toprol-XL 200 mg daily, and pra vastatin 40 mg p.o. at bedtime. CONTRAINDICATIONS: None. CODE STATUS: FULL CODE. INPATIENT CONSULTANTS: Dr. Corona and Dr. Mata were following while in hospital. TEST RESULTS PENDING ON DISCHARGE: None. ALLERGIES: No known drug allergy. DISCHARGE PLAN: Post hospital, the patient is discharged home with home health. Subsequently, the p atient will follow up with primary care physician and supervisor alum plant as instructed. HOSPITAL COURSE: An 82-year-old female who was admitted by Dr. Aquino on 12/20/2017. Please see her H and P for further details. This patient was admitted for chest pain, palpitation and the patient was diagnosed with atrial fibrillation with RVR. Patient was treated with a Cardizem drip and rate w as under control. She was admitted to telemetry floor. She required medication adjustment as above. Cardiology was following while in hospital. Her troponin remained negative. For the last couple o f days, the patient's rate remained under control with oral medications. Patient's family member req uested home health that was arranged with the help of outsole caser. All new medication prescriptions sent to her pharmacy. PHYSICAL EXAMINATION: Patient is seen and examined at bedside today. Please see my progress note fr om today for further details.
[2017-12-23 13:15] VITALS: BP 136/71; TEMP 98
== END 2017-12-23 14:01 | disposition home health service (06) | DRG 309 ==
LOC: ERS 21:29 → 2NO 23:05
PROVIDERS: ADMIT Internal Medicine; ATTEND Internal Medicine
DX: I48.91 Unspecified atrial fibrillation (principal); E44.0 Moderate protein-calorie malnutrition; R64 Cachexia; E11.22 Type 2 diabetes mellitus with diabetic chronic kidney disease; D53.9 Nutritional anemia, unspecified; Z68.1 Body mass index [BMI] 19.9 or less, adult; E78.5 Hyperlipidemia, unspecified; I25.10 Atherosclerotic heart disease of native coronary artery without angina pectoris; I12.9 Hypertensive chronic kidney disease with stage 1 through stage 4 chronic kidney disease, or unspecified chronic kidney disease; N18.9 Chronic kidney disease, unspecified; Z79.01 Long term (current) use of anticoagulants; Z95.1 Presence of aortocoronary bypass graft
CPT/HCPCS: 36415; 36416; 80048; 84484; 85025; 93005; 94760

== ENCOUNTER 2018-01-20 02:44 | Inpatient (IN) | payer MEDICARE, MEDICAID ==
[2018-01-20 03:40] LABS: #Eosinphils 0.1 thou/uL (0.0-0.7); #Monocytes 0.6 thou/uL (0.11-0.59); #Neutrophils 4.4 thou/uL (1.40-6.50); %Basophils 0.2 % (0.0-1.0); %Lymphocytes 28.3 % (21.0-51.0); %Monocytes 8.8 % (0.0-10.0); %Neutrophils 61.7 % (42.0-75.0); Hemoglobin 10.8 g/dL (12.0-16.0); Mean Corpuscular HGB CONC 32.1 g/dL (32.0-36.0); Mean Corpuscular Hemoglobin 30.2 pg (27.0-31.0); Mean Corpuscular Volume 94.1 fl (81.0-99.0); Mean Platelet Volume 8.6 fL (7.4-10.4); Platelet Count 186 thou/uL (130-400); White Blood Cell (WBC) Count 7.1 thou/uL (4.8-10.8)
[2018-01-20] MEDS ORDERED: Aspirin 81 mg Enteric Coated Tablet ONE (03:45)
[2018-01-20 03:55] LABS: ALT (SGPT) 38 U/L (8-55); AST (SGOT) 44 U/L (5-34); Albumin 3.9 g/dL (3.4-4.8); Alkaline Phosphatase 57 U/L (40-150); Anion Gap 14 mmol/L (10-20); BUN (Urea Nitrogen) 22 mg/dL (9.8-20.1); Bilirubin, Total 0.5 mg/dL (0.2-1.2); Calc. Creatinine Clearance 0 mL/min (70-130); Calcium 9.6 mg/dL (7.8-10.44); Carbon Dioxide 27 mmol/L (23-31); Chloride 102 mmol/L (98-107); Estimated GFR-MDRD 64; Globulin 3.3 g/dL (2.4-3.5); Glucose 112 mg/dL (83-110); Potassium 4.5 mmol/L (3.5-5.1); Protein, Total 7.2 g/dL (6.0-8.3); Sodium 138 mmol/L (136-145)
[2018-01-20 04:00] LABS: CKMB 0.8 ng/mL (0-6.6); Troponin I Less than 0.010 ng/mL (< 0.028)
[2018-01-20 05:46] LABS: Bilirubin Negative (Negative); Blood, Urine Negative (Negative); Clarity CLEAR (Clear); Glucose, Urine (Dipstick) Negative (Negative); Leukocyte Moderate (Negative); Nitrite Negative (Negative); Protein, Urine (Dipstick) Trace mg/dL (Neg-Trace); Specific Gravity, Urine 1.022 (1.002-1.036)
[2018-01-20 05:49] LABS: Bacteria/HPF None Seen HPF (None Seen); Hyaline Casts/LPF 0-3 HYALINE CAST LPF (0-3 Hyaline); RBC/HPF 0-3 HPF (0-3); Squamous Epithelial 0-3 HPF (0-3)
[2018-01-20] MEDS ORDERED: Diabetic Tussin 200 MG/10 ML UDCUP PO PRN (06:45)
[2018-01-20] MEDS ORDERED: Milk Of Magnesia 30 ML UDCUP PO PRN (06:45)
[2018-01-20] MEDS ORDERED: Dextrose 5% in Water 1,000 ML IV PRN (06:45)
[2018-01-20] MEDS ORDERED: Mag-Al 1200 mg/1200 mg/30 ML UDCUP PO PRN (06:45)
[2018-01-20] MEDS ORDERED: hydrALAZINE 20 MG/ML VIAL SLOW IVP PRN (06:45)
[2018-01-20] MEDS ORDERED: Sodium Chloride 0.65% Nasal 44 ML BOT EA NARE PRN (06:45)
[2018-01-20] MEDS ORDERED: Loratadine 10 MG TAB PO PRN (06:45)
[2018-01-20] MEDS ORDERED: Artificial Tears 18 DROP/0.9 ML EA EYE PRN (06:45)
[2018-01-20] MEDS ORDERED: Ondansetron ODT 4 MG TAB PO PRN (06:45)
[2018-01-20] MEDS ORDERED: Senokot 8.6 MG TAB PO PRN (06:45)
[2018-01-20] MEDS ORDERED: Zolpidem Tartrate 5 MG TAB PO PRN (06:45)
[2018-01-20] MEDS ORDERED: Diltiazem 125 MG in Sodium Chloride 0.9% 100 ML IVPB SCH (06:45)
[2018-01-20] MEDS ORDERED: HYDROcodone/Acetaminophen 5/325 mg Tablet PO PRN (06:45)
[2018-01-20] MEDS ORDERED: Chloraseptic Spray 180 ml Bottle PO PRN (06:45)
[2018-01-20] MEDS ORDERED: Dextrose 50% Abboject 50 ML SYRINGE SLOW IVP PRN (06:45)
[2018-01-20] MEDS ORDERED: Nitroglycerin 0.4 MG TAB (25 Tab Bottle) SL PRN (06:45)
[2018-01-20] MEDS ORDERED: HumaLOG 300 UNITS/3 ML VIAL SC PRN ×2 (06:45)
[2018-01-20] MEDS ORDERED: Loperamide HCl 2 MG CAP PO PRN (06:45)
[2018-01-20] MEDS ORDERED: Eucerin (Mineral Oil/Petrolatum,White) 30 gm Jar TOP PRN (06:45)
[2018-01-20] MEDS ORDERED: Ondansetron HCl/PF 4 MG/2 ML Vial IVP PRN (06:45)
[2018-01-20 06:48] LABS: Troponin I Less than 0.010 ng/mL (< 0.028)
[2018-01-20] MEDS ORDERED: cefTRIAXone\\ROCEPHIN 1 GM in Sodium Chloride 0.9% 100 ML IVPB SCH (07:30)
[2018-01-20 07:58] VITALS: BMI 19.1
[2018-01-20] MEDS: Fish Oil 1,000 MG CAP PO SCH (08:24)
[2018-01-20] MEDS: metFORMIN 500 MG TAB PO SCH ×2 (08:25→17:47)
[2018-01-20] MEDS: Aspirin 81 mg Enteric Coated Tablet PO SCH (08:25)
[2018-01-20] MEDS: cefTRIAXone\\ROCEPHIN 1 GM, Syringe 0.4 ML in Sterile Water 9.6 ML SLOW IVP SCH (08:25)
[2018-01-20] MEDS ORDERED: Non-Formulary Item 1 EACH (Apixaban [Eliquis] 2.5 MG) PO SCH (09:00)
[2018-01-20] MEDS ORDERED: AZILSARTAN MED PO SCH (09:00)
[2018-01-20] MEDS ORDERED: Famotidine 20 MG TAB PO SCH (09:00)
[2018-01-20] MEDS ORDERED: CHLORTHALIDONE PO SCH (09:00)
[2018-01-20] MEDS ORDERED: Apixaban 5 MG TAB PO SCH (09:00)
--- NOTE | 2018-01-20 09:19 | RAD ---
PORTABLE UPRIGHT FRONTAL CHEST RADIOGRAPH: 01/20/2018 HISTORY: Chest pain. COMPARISON: 12/19/2017 FINDINGS: The cardiac silhouette is enlarged and midline sternotomy wires are present, a stable appearance. Th ere is atherosclerotic calcification of the aortic arch. There is mild increased linear interstitial density. The lungs are hyperinflated. The right hilar shadow is prominent, unchanged since 03/20/2013. No lobar consolidation or alveolar edema. No large volume pleural effusion. There is blunting of th e right costophrenic angle, which may signify small volume right pleural effusion versus pleural scar . IMPRESSION: Questionable small right pleural effusion, otherwise unchanged. POS: [facility]
[2018-01-20] MEDS: Acetaminophen 325 MG TAB PO PRN (11:58)
[2018-01-20] MEDS ORDERED: Esmolol 2,500 MG/250 ML 250 ML IVPB PRN (12:31)
--- NOTE | 2018-01-20 12:53 | HP ---
PRIMARY CARE PHYSICIAN: Dr. Bessie Soni PRIMARY GREEN END MAN: Dr. Mata REASON FOR ADMISSION: Atrial fibrillation with rapid ventricular response, chest pain. HISTORY OF PRESENT ILLNESS: An 82-year-old female who has underlying history of atrial fibrillation. She had a cardioversion in 08/2015. She had recently two back to back admissions for atrial fibril lation with RVR. Her most recent admission was in 12/20/2017 and she was discharged home on 12/23/19 18. Last night around 10:00 p.m. before going to bed she was having chest pain, palpitation, left-si ded chest pain, 6/10 in intensity without any association of nausea, vomiting, diaphoresis. She was not feeling any dizziness, lightheaded or syncope. She did not have any associated shortness of duy th, orthopnea, PND or leg swelling. She was trying her home medication without any improvement, and that is why family member brought her to the emergency room around 2:00 a.m. The patient was found w ith atrial fibrillation with RVR. Heart rate was variable in the emergency room, she was given Cardi zem bolus and subsequently the patient was admitted to telemetry floor. As telemetry did not have an y beds available and that is why as a tele overflow the patient was admitted in ICU. When I saw this patient, at that time her chest pain completely subsided. Her rate was variable. Th e patient denies taking any caffeinated product. She denies any syncope. She denies any fever, chil ls, flu-like illness. She denies any UTI symptoms. She denies any constipation, diarrhea, melena or hematochezia. PAST MEDICAL HISTORY: Moderate to severe mitral regurgitation, moderate tricuspid regurgitation, atr ial fibrillation, coronary artery disease that required CABG, diabetes type 2, hypertension. PAST SURGICAL HISTORY: CABG, cardioversion performed in 2012 and then 2014. REVIEW OF SYSTEMS: The following complete review of systems was negative, unless otherwise mentioned in the HPI or below: Constitutional: Weight loss or gain, ability to conduct usual activities. Skin: Rash, itching. Eyes: Double vision, pain. ENT/Mouth: Nose bleeding, neck stiffness, pain, tenderness. Cardiovascular: Palpitations, dyspnea on exertion, orthopnea. Respiratory: Shortness of breath, wheezing, cough, hemoptysis, fever or night sweats. Gastrointestinal: Poor appetite, abdominal pain, heartburn, nausea, vomiting, constipation, or diarrhea. Genitourinary: Urgency, frequency, dysuria, nocturia. Musculoskeletal: Pain, swelling. Neurologic/Psychiatric: Anxiety, depression. Allergy/Immunologic: Skin rash, bleeding tendency. Please see my HPI for pertinent positive and negative. All other review of systems reviewed and nega tive except as mentioned in the HPI. EMERGENCY ROOM COURSE: Patient is given aspirin, Cardizem 20 mg IV push. SOCIAL HISTORY: The patient lives at home by herself. Her son lives next door to her. No history o f tobacco or illicit drug abuse. FAMILY HISTORY: No strong family history of premature coronary artery disease, stroke or cancer. PAST PSYCHIATRIC HISTORY: Reviewed and negative. CODE STATUS: The patient is Jehovah Witness, but she is full code. Patient's son and [id number] are medical power of freight traffic consultant. ALLERGIES: No known drug allergy. CURRENT HOME MEDICATIONS: Eliquis 2.5 mg p.o. b.i.d., aspirin 81 mg p.o. daily, azilsartan with chlo rthalidone 40/12.5 one tablet p.o. daily, Cardizem-CD 120 mg p.o. daily, fish oil 1000 mg p.o. daily, iron 1 tablet daily, Imdur 60 mg p.o. daily, metformin 500 mg p.o. b.i.d., Toprol-XL 200 mg p.o. wilmer ly, pravastatin 40 mg p.o. at bedtime. PHYSICAL EXAMINATION: VITAL SIGNS: On arrival, blood pressure 162/98, pulse 125 and irregular, respiratory rate 17, temper ature 98.3, saturation 98% on room air, weight 46.2 kilograms. GENERAL: The patient is currently alert, awake, no obvious acute distress. HEENT: Head; normocephalic, atraumatic. Eyes: Pupils round, reactive to light. Extraocular muscle intact. ENT: Oropharynx within normal limit. Moist mucous membranes. No oral lesion, no pharynge al erythema, no exudate. NECK: Supple, no JVD, no thyromegaly, no carotid bruit, no jugular venous distention. LUNGS: Clear to auscultation without any rhonchi or rales. CARDIAC: S1, S2 irregularly irregular. No murmur, no gallop, no rub. ABDOMEN: Soft, bowel sounds present, nontender, nondistended. No organomegaly, no mass, no suprapub ic tenderness. BACK: Unremarkable, no CVA tenderness. EXTREMITIES: Upper extremity passive movement of all joints are normal. Lower extremities: No laura a. Good peripheral pulsation, no calf tenderness. SKIN: No skin rash. HEMATOLOGICAL: No lymphadenopathy. PSYCHIATRIC: Normal affect. EKG showing atrial fibrillation with RVR, nonspecific ST-T changes in inferior and anterolateral lead s. Chest x-ray based on my review, pulmonary vascular prominence. No significant change from previo us. CBC: WBC 7.1, hemoglobin 10.8, platelet 186. BMP: Sodium 138, potassium 4.5, chloride 102, carbon dioxide 27, BUN 22, creatinine 1.0, glucose 112, calcium 9.6. LFTs: AST 44, ALT 38, alkaline phosph atase 257, albumin 3.9 Cardiac enzymes negative x3. BNP 542.5. Urinalysis: Leukocyte esterase mode rate. ASSESSMENT AND PLAN: 1. Chest pain. The patient's chest pain description is related with atrial fibrillation with rapid ventricular response. Currently, cardiac enzymes are negative. Her EKG is unchanged from previous. The patient already had echocardiography in 08/2017. The patient is also chest pain free at this po int, we will keep her on telemetry floor and monitor overnight. 2. Atrial fibrillation with rapid ventricular response. The patient's rate is currently variable. In our hospital we do not have a Cardizem drip and that is why we will try to use esmolol drip if nee ded. We will continue the Cardizem-CD 120 mg p.o. daily, Toprol-XL 200 mg p.o. daily. Monitor on te lemetry floor. If patient's rate remains uncontrolled, then we will start esmolol drip. 3. Chronic anticoagulation. The patient has underlying atrial fibrillation based on JAQUELINE 2 score, p atient is high risk for stroke and that is why we will continue Eliquis 2.5 mg p.o. b.i.d. 4. Urinary tract infection. We will send urine culture and start Rocephin 1 gram q.24 hours. 5. Moderate protein calorie malnutrition, nutritional supplement will be given with Glucerna 1.2 b.i .d. 6. Dyslipidemia. Continue Lipitor 10 mg p.o. at bedtime. 7. Gastroesophageal reflux disease. We will continue Pepcid 20 mg p.o. b.i.d. 8. Coronary artery disease. Continue aspirin 81 mg p.o. daily, Lipitor 10 mg p.o. at bedtime, Topro l-XL 200 mg p.o. daily and Imdur 60 mg p.o. daily. 9. Diabetes type 2. Continue metformin 500 mg p.o. b.i.d. and insulin as per sliding scale per prot ocol. Diabetic diet will be given. 10. Anemia, normocytic, normochromic. Continue ferrous sulfate 325 mg p.o. daily. 11. Deep venous thrombosis prophylaxis. Patient is already on Eliquis therapy. 13. Gastrointestinal prophylaxis. Patient is already on Pepcid therapy. 14. Code status: The patient is full code. Patient's son and [id number] are surrogate decisio n maker. Disposition plan based on clinical course. We are expecting the patient's stay in hospital more than 2 midnights. Plan of care discussed with the patient in detail. If the patient's rate does not rem ain controlled or if she remains in an RVR then we will consider Cardiology evaluation. At this poin t, we will try to treat medically first with rate control.
--- NOTE | 2018-01-20 17:07 | CON ---
DATE OF CONSULTATION: 01/20/2018 SERVICE: Pulmonary Medicine. REASON FOR CONSULTATION: ICU patient. HISTORY OF PRESENT ILLNESS: The patient is an 82-year-old -[place] female with past medical history significant for paroxysmal atrial fibrillation. She was in her usual state of health until about a week prior to presentation. She started having a cough, bringing up a little bit of sputum. It was white in color. It was not yellow or green. She denies any fevers or chills. She does not have any difficulty breathing or wheezing. Otherwise, she went to bed last night around 08:00. At 10:00, she woke up with her heart fluttering, and a little bit of chest heaviness. She presented to the Emergency Department by 4:00 in the morning. She was given a push of diltiazem. This controlled her heart rate. She previously was in the hospital with atrial fibrillation with RVR associated with not taking some medications. She indicates at this time, she was using all of her medications as directed. Overnight, her heart rate has been under control and the heaviness is resolved. She does not have any shortness of breath, cough or chest discomfort. Her primary laboratory animal caretaker is Dr. Mata. PAST MEDICAL HISTORY: 1. Chronic systolic heart failure (ejection fraction 40%). 2. Severe mitral regurgitation. 3. Atrial fibrillation. 4. Coronary artery disease. 5. Type 2 diabetes mellitus. 6. Hypertension. PAST SURGICAL HISTORY: 1. Coronary bypass graft. 2. Cardioversion in 2012 and 2014. FAMILY HISTORY: Noncontributory. SOCIAL HISTORY: The patient lives at home by herself in a trailer. That being said, her son is right next door to her and she has another child that lives across the highway. She denies any alcohol, tobacco or illicit drug use currently. She has no exposure to chemicals, dust, asbestos or tuberculosis. ALLERGIES: No drug allergies. MEDICATIONS: List of her inpatient medications were reviewed. No specific updates were made at this time. REVIEW OF SYSTEMS: General, head, ears, eyes, nose, throat, cardiovascular, respiratory, GI, , musculoskeletal, neurologic and skin is negative except as mentioned in the HPI. PHYSICAL EXAMINATION: VITAL SIGNS: Afebrile, pulse 77, blood pressure 129/63, respirations 20 and saturation 98% on room air. GENERAL: The patient is awake and alert, in no apparent distress. LUNGS: Excellent air entry. There is no prolonged expiratory phase. Dependent crackles are present bilaterally. There is no wheezing or rhonchi present. HEART: Normal rate and irregular. ABDOMEN: Soft, nontender and nondistended. Bowel sounds are positive. MUSCULOSKELETAL: No cyanosis or clubbing. There is no pitting in the bilateral lower extremities. NEUROLOGIC: Grossly nonfocal. LABORATORY DATA: WBC 7.1, hemoglobin 10.8 and platelets 186,000. Basic metabolic profile and liver function studies are unremarkable. BNP 542. This is slightly above baseline of 300. Troponin is negative x3. Glucose is unremarkable. Urinalysis is unremarkable. IMAGING DATA: Chest x-ray demonstrates mild blunting of the right costophrenic angle suggestive of chronic changes and/or small pleural effusion. Pulmonary vascular engorgement appears chronically present. ASSESSMENT: 1. Atrial fibrillation with rapid ventricular response. 2. Acute on chronic systolic and valvular heart failure, mild. 3. Chest pain, resolved. 4. Deconditioning. PLAN: We will make certain the patient does not get further deconditioned while being in the hospital. We will have her work with physical therapy and get her into a chair 3 times a day and increase as tolerated. Cardiology consultation will be placed. This AFib with RVR was quite easy to control, but associated with significant chest discomfort. Pulmonary will continue to follow while she remains in this location. 70 minutes have been devoted to this patient in various activities. I personally reviewed all imaging studies and laboratory data noted within this document. For fifty percent of this time, I was interacting with the patient at the bedside or coordinating care with the care team. For the remainder of the time I was immediately available to the patient in the hospital unit. GÉNESIS
[2018-01-20] MEDS: Atorvastatin Calcium 10 MG TAB PO SCH (20:24)
[2018-01-20] MEDS: Enoxaparin Sodium 40 MG/0.4 ML SYRINGE SC SCH (20:25)
[2018-01-20] MEDS ORDERED: Pravastatin Sodium 40 MG TAB PO SCH (21:00)
[2018-01-21 05:11] LABS: #Eosinphils 0.1 thou/uL (0.0-0.7); #Lymphocytes 2.1 thou/uL (1.20-3.40); #Monocytes 0.7 thou/uL (0.11-0.59); #Neutrophils 4.4 thou/uL (1.40-6.50); %Basophils 0.5 % (0.0-1.0); %Eosinophils 1.3 % (0.0-10.0); %Lymphocytes 28.6 % (21.0-51.0); %Monocytes 9.6 % (0.0-10.0); %Neutrophils 60.1 % (42.0-75.0); Hemoglobin 10.7 g/dL (12.0-16.0); Mean Corpuscular HGB CONC 31.8 g/dL (32.0-36.0); Mean Corpuscular Hemoglobin 29.9 pg (27.0-31.0); Mean Corpuscular Volume 93.9 fl (81.0-99.0); Mean Platelet Volume 8.8 fL (7.4-10.4); Platelet Count 183 thou/uL (130-400); Red Blood Cell (RBC) Count 3.58 mill/uL (4.20-5.40); White Blood Cell (WBC) Count 7.3 thou/uL (4.8-10.8)
[2018-01-21 05:17] LABS: Anion Gap 12 mmol/L (10-20); BUN (Urea Nitrogen) 22 mg/dL (9.8-20.1); Calc. Creatinine Clearance 40 mL/min (70-130); Calcium 8.8 mg/dL (7.8-10.44); Carbon Dioxide 25 mmol/L (23-31); Chloride 101 mmol/L (98-107); Estimated GFR-MDRD 82; Glucose 87 mg/dL (83-110); Potassium 4.2 mmol/L (3.5-5.1); Sodium 134 mmol/L (136-145)
[2018-01-21] MEDS: Enoxaparin Sodium 40 MG/0.4 ML SYRINGE SC SCH ×2 (09:55→21:05)
[2018-01-21] MEDS: Fish Oil 1,000 MG CAP PO SCH (09:56)
[2018-01-21] MEDS: metFORMIN 500 MG TAB PO SCH ×2 (09:57→21:48)
[2018-01-21] MEDS: Aspirin 81 mg Enteric Coated Tablet PO SCH (09:57)
--- NOTE | 2018-01-21 10:51 | PRG ---
DATE OF SERVICE: 01/21/2018 SERVICE: Pulmonary Medicine. INTERVAL HISTORY: The patient is doing fantastic from a respiratory standpoint. She denies any ches t pain or shortness of breath. She is not having any palpitations. Otherwise, she has returned to formerly [facility] usual state of health. PHYSICAL EXAMINATION: VITAL SIGNS: Afebrile, pulse 81, blood pressure 160/87, respirations 16, saturation 97% on room air. GENERAL: The patient is awake, alert, no apparent distress. LUNGS: Excellent air entry. There is no prolonged expiratory phase or wheezing. HEART: Normal rate and irregular. ABDOMEN: Soft, nontender, and nondistended. Bowel sounds are positive. MUSCULOSKELETAL: No cyanosis or clubbing. There is no pitting in the bilateral lower extremities. NEUROLOGIC: Grossly nonfocal. LABORATORY DATA: WBC 7.3, hemoglobin 10.7 and stable, platelets 183,000. Sodium 134 and minimally d own trending. Blood sugars ranged from 87-178. Cardiac enzymes are negative x2. BUN is stable at 2 8 and creatinine has down trended to 0.8. Urinalysis is unremarkable. ASSESSMENT: 1. Atrial fibrillation with rapid ventricular response, currently rate controlled. 2. Acute on chronic systolic and valvular heart failure, minimal/returned to baseline. 3. Chest pain, resolved. 4. Deconditioning. DISCUSSION AND PLAN: The patient is doing really quite well from a cardiovascular and respiratory pe rspective. At this point, she has no further requirements for inpatient Pulmonary or Critical Care o adam. I wonder whether or not medical noncompliance has been an underlying issue here. This time around, the patient; however, does suggest that she was actively taking all of her medications as pre scribed. Cardiology opinion is currently pending. Please call with additional questions or concerns moving forward, but at this point, she has no further requirements for Pulmonary following her.
[2018-01-21] MEDS: cefTRIAXone\\ROCEPHIN 1 GM, Syringe 0.4 ML in Sterile Water 9.6 ML SLOW IVP SCH (11:18)
--- NOTE | 2018-01-21 11:52 | PDOC.PN ---
- Subjective Encounter Start Date: 01/21/18 Encounter Start Time: 11:51 Patient seen and examined, requesting to see her cover stripper Dr. Mata, otherwise no new issues. - Objective Resuscitation Status: Resuscitation Status FULL:Full Resuscitation Vital Signs & Weight: Vital Signs (12 hours) Pulse Pulse Pulse BP BP BP Pulse Ox 01/21/18 09:57 81 181/86 H 01/21/18 09:54 81 111 H 181/86 H 139/86 100 Pulse Ox 01/21/18 09:57 01/21/18 09:54 95 Most Recent Monitor Data Heart Rate from ECG 87 NIBP 160/87 NIBP BP-Mean 107 Respiration from ECG 16 SpO2 97 I&O: 01/20/18 01/21/18 01/22/18 06:59 06:59 06:59 Intake Total 520 Output Total 1800 Balance -1280 Result Diagrams: 01/21/18 04:29 01/21/18 04:29 Additional Labs: Accuchecks 01/20/18 01/20/18 20:32 17:21 POC Glucose 135 H 178 H Phys Exam - Physical Examination Constitutional: NAD HEENT: PERRLA, moist MMs, sclera anicteric Neck: no nodes, no JVD, supple Respiratory: no wheezing, no rales, no rhonchi Cardiovascular: no significant murmur, no rub, irregular Gastrointestinal: soft, non-tender, no distention Musculoskeletal: no edema, pulses present Neurological: non-focal, normal sensation Dx/Plan (1) Atrial fibrillation with RVR Code(s): I48.91 - UNSPECIFIED ATRIAL FIBRILLATION Status: Acute Comment: controlled (2) CAD (coronary artery disease) Code(s): I25.10 - ATHSCL HEART DISEASE OF [place] CORONARY ARTERY W/O ANG PCTRS Status: Chronic (3) Diabetes type 2, controlled Code(s): E11.9 - TYPE 2 DIABETES MELLITUS WITHOUT COMPLICATIONS Status: Chronic (4) Dyslipidemia Code(s): E78.5 - HYPERLIPIDEMIA, UNSPECIFIED Status: Chronic (5) Hypertension Code(s): I10 - ESSENTIAL (PRIMARY) HYPERTENSION Status: Chronic - Plan * will consult cardio per patient's request * continue current plan of care for now * DC plans in 24-48hrs * case and plan d/w patient at length, she understand and agrees with this plan
[2018-01-21] MEDS: Atorvastatin Calcium 10 MG TAB PO SCH (21:05)
[2018-01-22] MEDS: Fish Oil 1,000 MG CAP PO SCH (09:43)
[2018-01-22] MEDS: Enoxaparin Sodium 40 MG/0.4 ML SYRINGE SC SCH ×2 (09:43→22:56)
[2018-01-22] MEDS: metFORMIN 500 MG TAB PO SCH ×2 (09:48→19:17)
[2018-01-22] MEDS: Aspirin 81 mg Enteric Coated Tablet PO SCH (09:48)
[2018-01-22] MEDS: cefTRIAXone\\ROCEPHIN 1 GM, Syringe 0.4 ML in Sterile Water 9.6 ML SLOW IVP SCH (09:52)
[2018-01-22] MEDS ORDERED: Chlorthalidone 25 MG TAB PO SCH (10:15)
[2018-01-22] MEDS ORDERED: Losartan 25 MG TAB PO SCH (10:15)
--- NOTE | 2018-01-22 12:33 | CON ---
DATE OF CONSULTATION: 01/21/2018 HISTORY: Catrachita Gutierrez is an 82-year-old black female who was followed with Dr. Mata for many years. She has history of CABG. She also has atrial fibrillation, has undergone previous cardioversions, but now it is felt to be in chronic atrial fibrillation. She was admitted in 08/2017 for fast ventricular response and was placed on digoxin. When she was seen in followup in the office on 12/10/2017, she was having weight loss and nausea and digoxin was discontinued. She then was admitted on 12/23/2017 again with atrial fibrillation with fast ventricular response. Cardizem 120 CD q.a.m. was added to her regimen. She states she has continued to have episodes of rapid heartbeat. She would feel her heart beating very rapidly with this. She will have chest pressure. She denies ever having the chest pressure without feeling also her heart beating rapidly. She denies any shortness of breath with this. She decided to come to the emergency room for further evaluation. In the emergency room, she was given Cardizem 20 mg IV which seemed to slow her heart rate. PAST MEDICAL HISTORY: Coronary artery disease, chronic atrial fibrillation, hypertension, hyperlipidemia, diabetes, renal insufficiency. OPERATIONS: CABG. MEDICATIONS AT HOME: Eliquis 2.5 mg b.i.d., aspirin 81 daily, Edarbyclor daily , Cardizem-CD 120 daily, iron 80 mg daily, isosorbide mononitrate 60 mg q.a.m., metformin 500 mg b.i.d., metoprolol 200 XL daily, pravastatin 40 at bedtime. ALLERGIES: None. SOCIAL HISTORY: She does not smoke or drink. FAMILY HISTORY: No coronary artery disease. REVIEW OF SYSTEMS: Twelve point review of systems otherwise unremarkable. PHYSICAL EXAMINATION: VITAL SIGNS: 181/86, pulse of 81. HEENT: PERRL. NECK: Supple. CHEST: Clear. CARDIAC: S1 and S2 are normal, without any S3, S4 or murmurs. ABDOMEN: Normal bowel sounds, without tenderness, organomegaly. EXTREMITIES: Revealed no clubbing, cyanosis or edema. NEUROLOGIC: Grossly intact. SKIN: Warm and dry. LABORATORY DATA: EKG revealed atrial fibrillation with a rate of 111 per minute with nonspecific ST and T-wave changes. Echocardiogram from 08/2017 revealed ejection fraction of 40%-45% with severe mitral regurgitation. Hemoglobin 10.7, hematocrit 33.6, white count 7300, platelets 183,000. Sodium 134, potassium 4.2, chloride 101, carbon dioxide 25, BUN 22, creatinine 0.81. Cardiac enzymes are unremarkable. IMPRESSION: 1. Atrial fibrillation with difficult to control rate despite high dose beta- filemon. 2. Status post coronary artery bypass graft. 3. Hypertension. 4. Hypercholesterolemia. 5. Diabetes. PLAN: Patient's Cardizem dose will be increased to 120 mg b.i.d. In review of the office record from 12/10, it stated that she was taking digoxin 0.125mg two tablets daily. If that was indeed the case, then she may be able to tolerate 125 mcg daily. Certainly, if she continues with these problems, then consideration may be given to pacemaker placement and AV node ablation. With her ejection fraction of 40%-45% with chronic ventricular pacing, consideration may need to be given to a biventricular pacemaker. REBECCAD
--- NOTE | 2018-01-22 14:45 | PDOC.PN ---
- Subjective Encounter Start Date: 01/22/18 Encounter Start Time: 14:41 Patient seen and examined, no new issues . - Objective Resuscitation Status: Resuscitation Status FULL:Full Resuscitation Vital Signs & Weight: Vital Signs (12 hours) Temp Pulse Resp BP BP Pulse Ox 01/22/18 09:43 91 170/71 H 01/22/18 08:00 98.3 F 91 18 170/74 H 97 01/22/18 04:00 98.6 F 67 20 161/79 H 94 L Most Recent Monitor Data Heart Rate from ECG 87 NIBP 160/87 NIBP BP-Mean 107 Respiration from ECG 16 SpO2 97 I&O: 01/21/18 01/22/18 01/23/18 06:59 06:59 06:59 Intake Total 520 1320 240 Output Total 1800 300 Balance -1280 1020 240 Result Diagrams: 01/21/18 04:29 01/21/18 04:29 Additional Labs: Accuchecks 01/22/18 01/22/18 01/21/18 12:08 05:40 20:32 POC Glucose 239 H 99 174 H Phys Exam - Physical Examination Constitutional: NAD HEENT: PERRLA, moist MMs, sclera anicteric Neck: no nodes, no JVD, supple Respiratory: no wheezing, no rales, no rhonchi Cardiovascular: no rub, irregular 2/6 systolic ejection murmur Gastrointestinal: soft, non-tender, no distention Musculoskeletal: no edema, pulses present Dx/Plan (1) Atrial fibrillation with RVR Code(s): I48.91 - UNSPECIFIED ATRIAL FIBRILLATION Status: Acute Comment: controlled (2) CAD (coronary artery disease) Code(s): I25.10 - ATHSCL HEART DISEASE OF [place] CORONARY ARTERY W/O ANG PCTRS Status: Chronic (3) Diabetes type 2, controlled Code(s): E11.9 - TYPE 2 DIABETES MELLITUS WITHOUT COMPLICATIONS Status: Chronic (4) Dyslipidemia Code(s): E78.5 - HYPERLIPIDEMIA, UNSPECIFIED Status: Chronic (5) Hypertension Code(s): I10 - ESSENTIAL (PRIMARY) HYPERTENSION Status: Chronic - Plan * Patient pending pacemaker placement for today * no other changes in plan for now * continue current plan of care * plan d/w patient
[2018-01-22] MEDS ORDERED: Lidocaine 1% (PF) 30 ML VIAL ONE ×2 (16:13→17:01)
[2018-01-22] MEDS ORDERED: CEFAZOLIN/Water 2 GM/20 ML SYRINGE ONE (16:39)
[2018-01-22] MEDS ORDERED: Fentanyl 100 MCG/2 ML VIAL ONE (16:46)
[2018-01-22] MEDS ORDERED: Midazolam HCl 2 mg/2 ml Vial ONE (16:46)
[2018-01-22] MEDS ORDERED: Acetaminophen/Codeine 30-300mg Tablet PO PRN ×2 (18:30)
--- NOTE | 2018-01-22 19:07 | RAD ---
SINGLE VIEW OF THE CHEST: 01/22/18 COMPARISON: 01/20/18 HISTORY: Post pacemaker placement. FINDINGS: Single view of the chest shows an enlarged but stable cardiomediastinal silhouette. The patient is st atus post sternotomy. Atherosclerotic calcifications are seen in the aorta. There is a left subclavia n pacemaker with its tip overlying the left aspect of the heart. This may be within the right ventric le or potentially within the coronary sinus, but this does not take the usual tortuous course of a ca theter in the coronary sinus. A small right pleural effusion is seen. Increased interstitial markings are present. There is no evidence of consolidation or pneumothorax. Degenerative changes are seen in the spine and shoulders. IMPRESSION: Status post pacemaker placement without evidence of pneumothorax. POS: BIBIANA
[2018-01-22] MEDS ORDERED: Enoxaparin Sodium 40 MG/0.4 ML SYRINGE SC SCH (22:15)
[2018-01-22] MEDS: Atorvastatin Calcium 10 MG TAB PO SCH (22:55)
[2018-01-22] MEDS: Cephalexin 250 MG CAP PO SCH (22:55)
[2018-01-22] MEDS: CHLORTHALIDONE PO SCH ×2 (23:54→23:55)
[2018-01-22] MEDS: AZILSARTAN MED PO SCH ×2 (23:54→23:55)
[2018-01-23] MEDS ORDERED: Chlorthalidone 25 MG TAB PO SCH (09:00)
[2018-01-23] MEDS ORDERED: Losartan 25 MG TAB PO SCH (09:00)
[2018-01-23] MEDS ORDERED: Digoxin 0.125 MG TAB PO SCH (09:00)
[2018-01-23] MEDS: Aspirin 81 mg Enteric Coated Tablet PO SCH (09:08)
[2018-01-23] MEDS: Cephalexin 250 MG CAP PO SCH ×2 (09:08→15:22)
[2018-01-23] MEDS: metFORMIN 500 MG TAB PO SCH (09:09)
[2018-01-23] MEDS: Fish Oil 1,000 MG CAP PO SCH (09:09)
[2018-01-23] MEDS: cefTRIAXone\\ROCEPHIN 1 GM, Syringe 0.4 ML in Sterile Water 9.6 ML SLOW IVP SCH (09:49)
[2018-01-23] MEDS: Acetaminophen 325 MG TAB PO PRN (09:52)
--- NOTE | 2018-01-23 11:46 | PDOC.EVN ---
Event Note - Event Note Event Note: DC SUMMARY #[id number]
--- NOTE | 2018-01-23 12:20 | CON ---
DATE OF CONSULTATION: 01/22/2018 REFERRING PHYSICIAN: Phan Calvillo M.D. REASON FOR CONSULTATION: Atrial fibrillation and rapid ventricular response. HISTORY OF PRESENT ILLNESS: Ms. Gutierrez is a pleasant 82-year-old -Indian female, followed by Dr. Mata for a history of significant coronary artery disease and prior bypass grafting as wel l as chronic atrial fibrillation with multiple cardioversions and difficult rate control. She has be en admitted multiple times within the past month for atrial fibrillation with RVR. She again present ed to the emergency room for rapid heart beating with associated chest pressure. She denies shortnes s of breath or additional symptoms. In the emergency room, she was given Cardizem 20 mg IV. We are being consulted given the difficult rate control for her atrial arrhythmias and need for a pacemaker. Today, overall, she reports that she is feeling well. She denies any current palpitations, chest p ain, pressure, stroke or stroke-like symptoms. She has not had any dizziness, syncope, or near synco pe. REVIEW OF SYSTEMS: Twelve-point review of systems was conducted and was negative except that listed in the HPI. PAST MEDICAL HISTORY: 1. Coronary artery disease, prior bypass grafting. 2. Chronic atrial fibrillation. 3. Hypertension. 4. Hyperlipidemia. 5. Diabetes. 6. Renal insufficiency. HOME MEDICATIONS: Include Eliquis 2.5 mg b.i.d., aspirin 81 mg daily, Edarbyclor daily, Cardizem-CD 120 mg daily, iron 80 mg daily, isosorbide mononitrate 60 mg q.a.m., metformin 500 mg b.i.d., metopro lol 200 mg daily, and pravastatin 40 mg at bedtime. ALLERGIES: None. SOCIAL HISTORY: Negative for tobacco , alcohol use, or illegal drug use. FAMILY HISTORY: Negative for coronary artery disease or sudden cardiac . PHYSICAL EXAMINATION: MOST RECENT VITAL SIGNS: Temperature 98.3, heart rate 91, blood pressure 170/71, respirations 18, ox ygen saturation 97% on room air. GENERAL: Patient is normocephalic, atraumatic, alert and oriented. NEUROLOGIC: Her speech is clear. Affect is appropriate. Extraocular movements are intact. NECK: Supple without jugular venous distention. CHEST: Clear to auscultation bilaterally without wheezes, crackles, or rhonchi. CARDIOVASCULAR: Heart rate is irregular. PMI is nonpalpable. ABDOMEN: Soft, nontender without palpable masses. Positive bowel tones are noted throughout. EXTREMITIES: Warm and dry to touch without clubbing, cyanosis, or edema. NEUROLOGICAL EXAM: Grossly intact and nonfocal. DATABASE: EKG and telemetry review revealed atrial fibrillation with heart rates in the low 100 rang e. Echocardiogram on 09/13 revealed an EF of 40%-45%, severe MR. RECENT LABORATORY VALUES: From 01/21, WBC 7.3, hemoglobin 10.7, hematocrit 33.6, platelet 183,000. Chemistry on 01/21/2018, sodium 134, potassium 4.2, chloride 101, carbon dioxide 25, BUN 22, creatini ne 0.8. IMPRESSION: 1. Chronic atrial fibrillation, currently with rapid ventricular rate and difficult rate control. 2. Angina in the setting of rapid ventricular response. 3. Normal left ventricular ejection fraction. PLAN: Seeing the patient has chronic atrial fibrillation and who proved very difficult to adequately control the rate with medication alone. We will proceed with implanting a pacemaker later today and the patient will likely benefit from an AV node ablation in the future once she has recovered and he aled from pacemaker implantation. This will be ideally at least one month after implant. Risks and benefits of pacemaker implantation were discussed with the patient. Risks include infectio n, pain, swelling, pressure in the lung or heart, requiring additional chest tube placement or surgic al repair. Patient understands these risks and then wanting to proceed with the pacemaker. Thank you for allowing me to participate in the care of this patient.
[2018-01-23 15:17] VITALS: BP 136/65; TEMP 98.5
--- NOTE | 2018-01-23 20:02 | DIS ---
DATE OF ADMISSION: 01/20/2018 DATE OF DISCHARGE: 01/23/2018 ADMITTING DIAGNOSES: Atrial fibrillation with rapid ventricular response and chest pain as well as a history of severe mitral regurgitation, tricuspid regurgitation, coronary artery disease, diabetes t ype 2 and hypertension. DISCHARGE DIAGNOSES: Atrial fibrillation status post pacemaker placement and ablation; mitral regurg itation, stable; tricuspid regurgitation, stable; coronary artery disease, stable; diabetes mellitus type 2, stable; hypertension, stable. HOSPITAL COURSE: This is an 82-year-old female who was admitted to the hospital because of chest ab n. Patient was evaluated by Internal Medicine team also seen by Pulmonary Critical Care and Cardiolo gy and EP. After thorough discussion with the patient and family between the Cardiology team as well as the patient's family, it was decided the patient would benefit from pacemaker placement. The pat ient proceeded to have the procedure done. Pacemaker was placed. She was observed for 24 hours post op and was found to be stable. All medications required from a cardiac perspective were given to the patient by prescription and she was supposed to follow up with Cardiology in 5-10 days. For further management and care, the is also to follow up with her PCP in 10-12 days for further management and care. Case and plan was discussed with her daughter via phone while I was in the room. DISPOSITION: Home. Her family lives directly next to her, so she has very good family support. FOLLOWUP: Follow up with PCP and Cardiology within 7-10 days for further management and care. MEDICATIONS: See MAR. ACTIVITY: As tolerated with assistance as needed. DIET: Low fat, low calorie, high fiber diet. CONDITION: Stable. PROGNOSIS: Guarded. Case and plan discussed with the patient and her family at length. They unders tand agree with this plan.
[2018-01-23] MEDS ORDERED: Apixaban 5 MG TAB PO SCH (21:00)
--- NOTE | 2018-01-30 15:02 | EKG ---
Test Reason : CP Blood Pressure : / mmHG Vent. Rate : 111 BPM Atrial Rate : 111 BPM P-R Int : 000 ms QRS Dur : 070 ms QT Int : 332 ms P-R-T Axes : 000 072 -89 degrees QTc Int : 451 ms Atrial fibrillation with rapid ventricular response Abnormal ECG Confirmed by VILMA GARCIA ([id number]), editor at large HENNA BERMEO ([id number] on 01/30/2018 3:00:18 PM Referred By: JOSE Confirmed By:VILMA GARCIA
== END 2018-01-23 16:55 | disposition home or self-care (01) | DRG 242 ==
LOC: ERS 02:44 → ERHOLD 04:25 → CCU 07:14 → 2NO 01-21 06:42
PROVIDERS: ADMIT Family Medicine; ATTEND Family Medicine
PROC: 0JH604Z Insertion of Pacemaker, Single Chamber into Chest Subcutaneous Tissue and Fascia, Open Approach (ICD-10-PCS; principal; 2018-01-22)
PROC: 02HK3JZ Insertion of Pacemaker Lead into Right Ventricle, Percutaneous Approach (ICD-10-PCS; 2018-01-22)
DX: I48.2 Chronic atrial fibrillation (principal); I50.23 Acute on chronic systolic (congestive) heart failure; E44.0 Moderate protein-calorie malnutrition; Z68.1 Body mass index [BMI] 19.9 or less, adult; D64.9 Anemia, unspecified; I08.1 Rheumatic disorders of both mitral and tricuspid valves; E11.9 Type 2 diabetes mellitus without complications; E78.5 Hyperlipidemia, unspecified; I11.0 Hypertensive heart disease with heart failure; I25.10 Atherosclerotic heart disease of native coronary artery without angina pectoris; K21.9 Gastro-esophageal reflux disease without esophagitis; Z79.01 Long term (current) use of anticoagulants; Z79.84 Long term (current) use of oral hypoglycemic drugs; Z79.82 Long term (current) use of aspirin; Z79.899 Other long term (current) drug therapy; Z95.1 Presence of aortocoronary bypass graft
CPT/HCPCS: 33207; 36005; 36415; 36416; 71045; 75820; 80048; 80053; 81003; 81015; 82553; 83880; 84484; 85025; 87086; 93005; 93798; 94760; 96374; 99152; 99153; A4216; C1786; C1898; G8978-GP-CK; G8979-GP-CK; G8980-GP-CK; J0696; J1650; J2001; J2250; J3010; J3490